=== PATIENT | male | born 1970 ===

== ENCOUNTER 2017-02-09 08:09 | Inpatient (IN) | payer BC ==
[2017-02-09 08:13] VITALS: BMI 24.3
[2017-02-09] MEDS ORDERED: Sodium Chloride 0.9% 1,000 ML IV STA (08:39)
[2017-02-09] MEDS ORDERED: Iohexol 300 100 ML IJ ONE (08:54)
[2017-02-09] MEDS ORDERED: Sodium Chloride 0.9% 50 ML IV ONE (08:54)
--- NOTE | 2017-02-09 08:59 | ED PDOC ---
HPI: Abdomen Time Seen by Provider: 02/09/17 08:23 Chief Complaint (Nursing): Abdominal Pain Chief Complaint (Provider): abdominal pain History Per: Patient History/Exam Limitations: no limitations Onset/Duration Of Symptoms: Days (x 1 week) Outside of [place] travel?: No Additional Complaint(s): Tucker Hansen is a 47 year old male, with a previous medical history of appendectomy, who presents to the ED with complaints of abdominal pain to the left lower quadrant and right side of his back ongoing for 1 week. Patient denies any fever, chillsm nausea, vomiting, diarrhea, urinary symptoms or bloody stools. He reports taking advil to alleviate the pain with the last dose being at 06:30 this morning. PMD: none provided Past Medical History Reviewed: Historical Data, Nursing Documentation, Vital Signs Vital Signs: Last Vital Signs Temp 97 F L 02/09/17 08:12 Pulse 92 H 02/09/17 08:12 Resp BP 133/82 02/09/17 08:12 Pulse Ox 99 02/09/17 09:04 - Medical History PMH: No Chronic Diseases - Surgical History Surgical History: Appendectomy (1994) - Family History Family History: States: Unknown Family Hx - Social History Current smoker - smoking cessation education provided: Yes Alcohol: Social - Immunization History Hx Tetanus Toxoid Vaccination: No Hx Influenza Vaccination: No Hx Pneumococcal Vaccination: No - Home Medications Home Medications: Ambulatory Orders Medication Instructions Recorded Aluminum Hydroxide/Magnesium 30 ml PO QID #360 jessi 10/25/13 [Maalox Plus 360 ml] Famotidine [Pepcid] 1 tab PO BID #20 tab 10/25/13 - Allergies Allergies/Adverse Reactions: Allergies Allergy/AdvReac Type Severity Reaction Status Date / Time No Known Allergies Allergy Unverified 02/08/13 19:34 Review of Systems ROS Statement: Except As Marked, All Systems Reviewed And Found Negative Constitutional: Negative for: Fever, Chills Gastrointestinal: Positive for: Abdominal Pain (LLQ). Negative for: Nausea, Vomiting, Diarrhea Genitourinary Male: Negative for: Dysuria, Frequency, Incontinence, Hematuria Musculoskeletal: Positive for: Back Pain (right sided ) Physical Exam - Reviewed Nursing Documentation Reviewed: Yes Vital Signs Reviewed: Yes - Physical Exam Appears: Positive for: Well, Non-toxic, No Acute Distress Head Exam: Positive for: ATRAUMATIC, NORMAL INSPECTION, NORMOCEPHALIC Skin: Positive for: Normal Color, Warm, Dry Eye Exam: Positive for: EOMI, Normal appearance, PERRL ENT: Positive for: Normal ENT Inspection Neck: Positive for: Normal, Painless ROM Cardiovascular/Chest: Positive for: Regular Rate, Rhythm Respiratory: Positive for: CNT, Normal Breath Sounds Gastrointestinal/Abdominal: Positive for: Bowel Sounds, Soft, Tenderness (RUQ and RLQ), Rebound (to the LLQ) Back: Positive for: Normal Inspection. Negative for: L CVA Tenderness, R CVA Tenderness Extremity: Positive for: Normal ROM Neurologic/Psych: Positive for: Alert, Oriented - Laboratory Results Result Diagrams: 02/09/17 09:50 02/09/17 09:50 - ECG O2 Sat by Pulse Oximetry: 99 (RA) Pulse Ox Interpretation: Normal Medical Decision Making Medical Decision Making: Initial Impression: abdominal pain with differential of diverticulitis Initial Plan: * abd& pelvis w/ IV contrast * lipase * urine dipstick * labs * morphine 2 mg IV * IV NS 1,000 ml at 1,000 ml/hr * pepcid 20 mg IV * reevaluation Scribe Attestation: Documented by Polina Galindo, acting as a scribe for Adelia Arreola MD. Provider Scribe Attestation: All medical record entries made by the Scribe were at my direction and personally dictated by me. I have reviewed the chart and agree that the record accurately reflects my personal performance of the history, physical exam, medical decision making, and the department course for this patient. I have also personally directed, reviewed, and agree with the discharge instructions and disposition. Disposition - Clinical Impression Clinical Impression: Diverticulitis, Colonic diverticular abscess - Patient ED Disposition Is Patient to be Admitted: Yes Doctor Will See Patient In The: Hospital - Disposition Referrals: FAMILY PROVIDER,NO [Primary Care Provider] - Disposition Time: 11:30 Condition: STABLE Forms: [facility] (Maltese) - Pt Status Changed To: Hospital Disposition Of: Inpatient - Admit Certification Admit to Inpatient:: After my assessment, the patient will require hospitalization for at least two midnights. This is because of the severity of symptoms shown, intensity of services needed, and/or the medical risk in this patient being treated as an outpatient. - POA Present On Arrival: None
[2017-02-09 10:05] LABS: BASO % 0.4 % (0.0-2.0); EOS # 0.4 K/uL (0.0-0.7); EOS % 3.4 % (0.0-4.0); HEMATOCRIT 42.6 % (35.0-51.0); LYMPH # 1.7 K/uL (1.0-4.3); LYMPH % 15.1 % (20.0-40.0); MEAN CELL VOLUME 96.4 fl (80.0-94.0); MEAN CORPUSCULAR HEMOGLOBIN 32.6 pg (27.0-31.0); MEAN CORPUSCULAR HGB CONC 33.9 g/dL (33.0-37.0); MEAN PLATELET VOLUME 7.8 fl (7.2-11.7); MONO % 8.4 % (0.0-10.0); NEUT # 8.4 K/uL (1.8-7.0); NEUT % 72.7 % (50.0-75.0); NRBC % 0.1 % (0.0-0.0); RED CELL DISTRIBUTION WIDTH 13.8 % (11.5-14.5); WHITE BLOOD COUNT 11.6 K/uL (4.8-10.8)
[2017-02-09 10:18] LABS: ALB/GLOB RATIO 1.3 (1.0-2.1); ALKALINE PHOSPHATASE 62 U/L (38-126); ALT/SGPT 40 U/L (21-72); AST/SGOT 29 U/L (17-59); BILIRUBIN,TOTAL 0.6 mg/dl (0.2-1.3); BLOOD UREA NITROGEN 12 mg/dl (9-20); CALCIUM 9.3 mg/dL (8.4-10.2); CARBON DIOXIDE 28 mmol/L (22-30); CHLORIDE 102 mmol/L (98-107); GFR AFRICAN-AMERICAN > 60; GLUCOSE,RANDOM 93 mg/dL (75-110); LIPASE 89 U/L (23-300); POTASSIUM 3.8 MMOL/L (3.6-5.0); SODIUM 138 mmol/l (132-148); TOTAL PROTEIN 6.8 G/DL (6.3-8.2)
--- NOTE | 2017-02-09 11:37 | CT ---
PROCEDURE: CT Abdomen and Pelvis with contrast HISTORY: LLQ pain x 1 week with tenderness COMPARISON: None. TECHNIQUE: Contrast dose: Omnipaque 300, 95 cc. Radiation dose: Total exam DLP = 692 mGy-cm. This CT exam was performed using one or more of the following dose reduction techniques: Automated exposure control, adjustment of the mA and/or kV according to patient size, and/or use of iterative reconstruction technique. FINDINGS: LOWER THORAX: Limited bilateral basilar dependent atelectasis. A small hiatal hernia is also noted. LIVER: Punctate granulomas seen at the inferior margins of the right lobe liver. Fatty infiltration liver difficult to exclude on diffuse basis due to arterial phase imaging. No gross ductal dilatation. GALLBLADDER AND BILE DUCTS: Gallbladder appears partly contracted. PANCREAS: Unremarkable. No gross lesion or ductal dilatation. SPLEEN: Unremarkable. ADRENALS: Unremarkable. No mass. KIDNEYS AND URETERS: Unremarkable. No hydronephrosis. No solid mass. VASCULATURE: Unremarkable. No aortic aneurysm. BOWEL: There is marked thickening of the sigmoid colon at the mid to distal segment with extensive diverticular changes. Local pericolic reaction appears relatively prominent and there is a small lucency seen in the lateral wall of the mid sigmoid colon with limited gas and mildly prominent peripheral enhancement suspicious for possible intramural abscess with potential extramural rupture. This measures only once 0.5 cm greatest dimension and follow-up CT is advised to monitor this following therapy. Oral contrast was not administered to this patient limiting evaluation of the stomach and bowel. Surgical clips are appreciated at the cecal base with prior appendectomy in question. Clinically correlate further. APPENDIX: Not identified. Consider possible prior appendectomy. See discussion immediately above. PERITONEUM: Trace fluid is seen in the pelvis. LYMPH NODES: Unremarkable. No enlarged lymph nodes. BLADDER: Unremarkable. REPRODUCTIVE: Enlarged prostate gland. BONES: Mild multilevel lumbar spondylosis. OTHER FINDINGS: None. IMPRESSION: Findings compatible with segmental colitis affecting the mid to distal sigmoid colon likely a function of diverticulitis. Differs diagnosis consist of other infectious or inflammatory causes though ischemia neoplasm not completely excluded. Further clinical correlation advised. A small microabscesses as questioned at the lateral margin of the mid sigmoid colon a either intramural or possibly extramural. Follow-up CT is advised during and following therapy to monitor this area in particular. No large abscess is evident and there is no prominent free intrarenal gas. Other lesser findings are as discussed above. Yes
[2017-02-09] MEDS ORDERED: metroNIDAZOLE 500mg/100ml NS 100 ML IVPB STA (12:17)
[2017-02-09] MEDS ORDERED: Ciprofloxacin 400mg/200ml D5W 400 MG/200 ML BAG IVPB STA (12:17)
[2017-02-09] MEDS ORDERED: Ciprofloxacin 400mg/200ml D5W 400 MG/200 ML BAG IVPB ONE (12:22)
[2017-02-09] MEDS ORDERED: metroNIDAZOLE 500mg/100ml NS 100 ML IVPB ONE (13:22)
--- NOTE | 2017-02-09 13:59 | CP.PCM.CON ---
History of Present Illness - History of Present Illness History of Present Illness: 47 year old male, with a previous medical history of appendectomy, who presents to the ED with complaints of abdominal pain to the left lower quadrant and right side of his back ongoing for 1 week. Patient denies any fever, chillsm nausea, vomiting, diarrhea, urinary symptoms or bloody stools. He reports taking advil to alleviate the pain with the last dose being at 06:30 this morning. C/O TENDERNESS LEFT > RIGHT IV RX IN [facility] REVIEWED Review of Systems - Constitutional Constitutional: Anorexia - EENT Eyes: absent: As Per HPI, Blind Spots, Blurred Vision, Change in Vision, Decreased Night Vision, Diplopia, Discharge, Dry Eye, Exophthalmos, Floaters, Irritation, Itchy Eyes, Loss of Peripheral Vision, Pain, Photophobia, Requires Corrective Lenses, Sees Flashes, Spots in Vision, Tunnel Vision, Other Visual Disturbances, Loss of Vision, Other Ears: absent: As Per HPI, Decreased Hearing, Ear Discharge, Ear Pain, Tinnitus, Abnormal Hearing, Disequilibrium, Dizziness, Other Nose/Mouth/Throat: absent: As Per HPI, Epistaxis, Nasal Congestion, Nasal Discharge, Nasal Obstruction, Nasal Trauma, Nose Pain, Post Nasal Drip, Sinus Pain, Sinus Pressure, Bleeding Gums, Change in Voice, Dental Pain, Dry Mouth, Dysphagia, Halitosis, Hoarsness, Lip Swelling, Mouth Lesions, Mouth Pain, Odynophagia, Sore Throat, Throat Swelling, Tongue Swelling, Facial Pain, Neck Pain, Neck Mass, Other - Cardiovascular Cardiovascular: absent: As Per HPI, Acrocyanosis, Chest Pain, Chest Pain at Rest , Chest Pain with Activity, Claudication, Diaphoresis, Dyspnea, Dyspnea on Exertion, Edema, Irregular Heart Rhythm, Pain Radiating to Arm/Neck/Jaw, Leg Edema, Leg Ulcers, Lightheadedness, Orthopnea, Palpitations, Paroxysmal Nocturnal Dyspnea, Pedal Edema, Radiating Pain, Rapid Heart Rate, Slow Heart Rate, Syncope, Other - Respiratory Respiratory: absent: As Per HPI, Cough, Dyspnea, Hemoptysis, Dyspnea on Exertion , Wheezing, Snoring, Stridor, Pain on Inspiration, Chest Congestion, Excessive Mucous Production, Change in Mucous Color, Pain with Coughing, Other - Gastrointestinal Gastrointestinal: As Per HPI - Genitourinary Genitourinary: absent: As Per HPI, Change in Urinary Stream, Difficulty Urinating, Dysuria, Flank Pain, Hematuria, Pyuria, Nocturia, Urinary Incontinence, Urinary Frequency, Urinary Hesitance, Urinary Urgency, Voiding Freq/Small Amts, Freq UTI, Hx Renal/Bladder Calculi, Hx /Renal Surgery, Bladder Distension, Other - Musculoskeletal Musculoskeletal: absent: As Per HPI, Abnormal Gait, Arthralgias, Atrophy, Back Pain, Deformity, Joint Swelling, Limited Range of Motion, Loss of Height, Muscle Cramps, Muscle Weakness, Myalgias, Neck Pain, Numbness, Radiating Pain into Limb, Stiffness, Tingling, Other - Integumentary Integumentary: absent: As Per HPI, Acne, Alopecia, Bleeding Lesions, Change in Hair, Change in Nails, Change in Pigmentation, Changing Lesions, Dry Skin, Erythema, Furuncle, Hirsutism, Lesions, New Lesions, Non-Healing Lesions, Photosensitivity, Pruritus, Rash, Skin Pain, Skin Ulcer, Sores, Striae, Swelling , Unusual Bruising, Wounds, Jaundice, Other - Neurological Neurological: absent: As Per HPI, Abnormal Gait, Abnormal Hearing, Abnormal Movements, Abnormal Speech, Behavioral Changes, Burning Sensations, Confusion, Convulsions, Disequilibrium, Dizziness, Numbness, Focal Weakness, Frequent Falls , Headaches, Lack of Coordination, Loss of Vision, Memory Loss, Paresthesias, Radicular Pain, Restless Legs, Sensory Deficit, Syncope, Tingling, Tremor, Vertigo, Weakness, Other Visual Disturbances, Other - Psychiatric Psychiatric: absent: As Per HPI, Abnormal Sleep Pattern, Anhedonia, Anxiety, Auditory Hallucinations, Behavioral Changes, Change in Appetite, Change in Libido, Confusion, Depression, Difficulty Concentrating, Hallucinations, Homicidal Ideation, Hopelessness, Irritability, Memory Loss, Mood Swings, Panic Attacks, Paranoia, Suicidal Ideation, Visual Hallucinations, Tactile Hallucinations, Other - Endocrine Endocrine: absent: As Per HPI, Change in Body Appearance, Change in Libido, Cold Intolorance, Deepening of Voice, Excessive Sweating, Fatigue, Flushing, Heat Intolorance, Increase in Ring/Shoe/Hat Size, Palpitations, Polydipsia, Polyphagia, Polyuria, Other Past Patient History - Infectious Disease Hx of Infectious Diseases: None - Past Social History Alcohol: Social - PSYCHIATRIC Hx Substance Use: Yes - SURGICAL HISTORY Hx Appendectomy: Yes (1994) Meds Allergies/Adverse Reactions: Allergies Allergy/AdvReac Type Severity Reaction Status Date / Time No Known Allergies Allergy Unverified 02/08/13 19:34 Physical Exam - Constitutional Appears: Non-toxic - Head Exam Head Exam: NORMOCEPHALIC - Eye Exam Eye Exam: PERRL. absent: Scleral icterus - ENT Exam ENT Exam: Mucous Membranes Dry - Neck Exam Neck exam: Negative for: Lymphadenopathy - Respiratory Exam Respiratory Exam: Decreased Breath Sounds, Clear to Auscultation Bilateral - Cardiovascular Exam Cardiovascular Exam: REGULAR RHYTHM - GI/Abdominal Exam GI & Abdominal Exam: Diminished Bowel Sounds, Distended, Soft, Tenderness - Rectal Exam Rectal Exam: Deferred - Exam Exam: NORMAL INSPECTION - Extremities Exam Extremities exam: Negative for: pedal edema - Back Exam Back exam: absent: CVA tenderness (L), CVA tenderness (R) Results - Vital Signs Recent Vital Signs: Last Vital Signs Temp 98.0 F 02/09/17 12:31 Pulse 61 02/09/17 12:31 Resp 19 02/09/17 12:31 BP 118/72 02/09/17 12:31 Pulse Ox 98 02/09/17 12:31 - Labs Result Diagrams: 02/09/17 09:50 02/09/17 09:50 Assessment & Plan (1) Colonic diverticular abscess Status: Acute (2) Diverticulitis Status: Acute (3) Alcohol abuse Status: Acute - Assessment and Plan (Free Text) Assessment: CONT IV ANTIBIOTIC RX
[2017-02-09] MEDS: Sodium Chloride 0.9% 1,000 ML IV SCH (14:41)
[2017-02-09] MEDS ORDERED: Pneumococcal 23-Valent Vaccine IM ONE (15:25)
--- NOTE | 2017-02-09 16:08 | CP.PCM.CON ---
<Steff May - Last Filed: 02/09/17 16:28> History of Present Illness - History of Present Illness History of Present Illness: Surgery consult for Dr. Mahoney 47 year old male w PSH of appendectomy, who presents with LLQ abdominal pain started 5 days ago. Pain is gradually worsen. Pt also reports R back pain. Reports taking Milk of magnesia and aleve to relieve pain. Has regular BM daily. Patient denies any fever, chillsm nausea, vomiting, diarrhea, urinary symptoms, weight loss, recent travel, sick contact or bloody stools. This is the first time having diverticulitis Ct abd show sigmoid diverticulitis. No free air. WBC was 11. Surgery was consulted to evaluate for diverticulitis. PSH: appendectomy Fhx: no h/o colon CA Review of Systems - Review of Systems Review of Systems: See HPI Past Patient History - Infectious Disease Hx of Infectious Diseases: None - Past Social History Smoking Status: Heavy Smoker > 10 Cigarettes Daily - CARDIAC Hx Cardiac Disorders: No - PULMONARY Hx Respiratory Disorders: No - NEUROLOGICAL Hx Neurological Disorder: No - HEENT Hx HEENT Problems: No - RENAL Hx Chronic Kidney Disease: No - ENDOCRINE/METABOLIC Hx Endocrine Disorders: No - HEMATOLOGICAL/ONCOLOGICAL Hx Blood Disorders: No - INTEGUMENTARY Hx Dermatological Problems: No - MUSCULOSKELETAL/RHEUMATOLOGICAL Hx Musculoskeletal Disorders: No Hx Falls: No - GASTROINTESTINAL Hx Gastrointestinal Disorders: No - GENITOURINARY/GYNECOLOGICAL Hx Genitourinary Disorders: No - PSYCHIATRIC Hx Substance Use: Yes (Marijuana) - SURGICAL HISTORY Hx Appendectomy: Yes (1994) - ANESTHESIA Hx Anesthesia: Yes Hx Anesthesia Reactions: No Meds Allergies/Adverse Reactions: Allergies Allergy/AdvReac Type Severity Reaction Status Date / Time No Known Allergies Allergy Unverified 02/08/13 19:34 - Medications Medications: Current Medications Acetaminophen (Tylenol 325mg Tab) 650 mg PO Q4 PRN PRN Reason: Fever >100.4 F Hydromorphone HCl (Dilaudid) 0.5 mg IVP Q4 PRN PRN Reason: Pain, severe (8-10) Ciprofloxacin (Cipro 400mg/200ml Dsw) 400 mg in 200 mls @ 200 mls/hr IVPB Q12 EMILY Metronidazole (Flagyl 500mg/100ml Ns) 100 mls @ 100 mls/hr IVPB Q12 EMILY Sodium Chloride (Sodium Chloride 0.9%) 1,000 mls @ 100 mls/hr IV .Q10H EMILY Stop: 02/10/17 14:09 Last Admin: 02/09/17 14:41 Dose: 100 mls/hr Ketorolac Tromethamine (Toradol) 15 mg IM Q6 PRN PRN Reason: Pain, moderate (4-7) Ondansetron HCl (Zofran Inj) 4 mg IVP Q4 PRN PRN Reason: Nausea/Vomiting Physical Exam - Constitutional Appears: No Acute Distress - Head Exam Head Exam: ATRAUMATIC, NORMAL INSPECTION, NORMOCEPHALIC - Eye Exam Eye Exam: EOMI, Normal appearance, PERRL Pupil Exam: NORMAL ACCOMODATION, PERRL - ENT Exam ENT Exam: Mucous Membranes Moist, Normal Exam - Neck Exam Neck exam: Positive for: Normal Inspection - Respiratory Exam Respiratory Exam: Clear to Auscultation Bilateral, NORMAL BREATHING PATTERN - Cardiovascular Exam Cardiovascular Exam: REGULAR RHYTHM - GI/Abdominal Exam GI & Abdominal Exam: Normal Bowel Sounds, Soft, Tenderness Additional comments: LLQ TTP. - Exam Exam: NORMAL INSPECTION - Extremities Exam Extremities exam: Positive for: full ROM, normal inspection - Back Exam Back exam: NORMAL INSPECTION. absent: CVA tenderness (L), CVA tenderness (R) - Neurological Exam Neurological exam: Alert, CN II-XII Intact, Normal Gait, Oriented x3, Reflexes Normal - Psychiatric Exam Psychiatric exam: Normal Affect, Normal Mood - Skin Skin Exam: Dry, Intact, Normal Color, Warm Results - Vital Signs Recent Vital Signs: Last Vital Signs Temp 98.3 F 02/09/17 15:00 Pulse 61 02/09/17 15:00 Resp 18 02/09/17 15:00 BP 133/87 02/09/17 15:00 Pulse Ox 100 02/09/17 15:00 - Labs Result Diagrams: 02/09/17 09:50 02/09/17 09:50 Assessment & Plan - Assessment and Plan (Free Text) Assessment: 47 M w sigmoid diverticulitis WBC 11.4 Afebrile -NPO -IVF -ABX -Zofran -Pain control -Recommend GI consult for colonoscopy in 4-6 weeks after resolution of diverticulitis -We will follow RADHA Mahoney <Micheal Joshua - Last Filed: 02/10/17 17:54> History of Present Illness - History of Present Illness History of Present Illness: Patient was seen and examined at the bedside. Agree with resident's note above Meds - Medications Medications: Current Medications Acetaminophen (Tylenol 325mg Tab) 650 mg PO Q4 PRN PRN Reason: Fever >100.4 F Hydromorphone HCl (Dilaudid) 0.5 mg IVP Q4 PRN PRN Reason: Pain, severe (8-10) Last Admin: 02/10/17 16:31 Dose: 0.5 mg Ciprofloxacin (Cipro 400mg/200ml Dsw) 400 mg in 200 mls @ 200 mls/hr IVPB Q12 EMLIY Last Admin: 02/10/17 08:48 Dose: 200 mls/hr Metronidazole (Flagyl 500mg/100ml Ns) 100 mls @ 100 mls/hr IVPB Q12 EMILY Last Admin: 02/10/17 08:47 Dose: 100 mls/hr Ketorolac Tromethamine (Toradol) 15 mg IVP Q6 PRN PRN Reason: Pain, moderate (4-7) Last Admin: 02/10/17 08:45 Dose: 15 mg Ondansetron HCl (Zofran Inj) 4 mg IVP Q4 PRN PRN Reason: Nausea/Vomiting Results - Vital Signs Recent Vital Signs: Last Vital Signs Temp 98.4 F 02/10/17 16:20 Pulse 60 02/10/17 16:20 Resp 18 02/10/17 16:20 BP 136/86 02/10/17 16:20 Pulse Ox 98 02/10/17 16:20 - Labs Result Diagrams: 02/10/17 05:00 02/09/17 09:50 Labs: Laboratory Results - last 24 hr 02/10/17 05:00 WBC 9.5 RBC 4.24 L Hgb 14.0 Hct 42.0 MCV 98.9 H D MCH 32.9 H MCHC 33.3 RDW 13.7 Plt Count 252
[2017-02-09] MEDS: HYDROmorphone 0.5 mg/0.5 ml ISec IVP PRN ×2 (16:57→21:11)
[2017-02-09] MEDS: Ciprofloxacin 400mg/200ml D5W 400 MG/200 ML BAG IVPB SCH (21:10)
[2017-02-09] MEDS: metroNIDAZOLE 500mg/100ml NS 100 ML IVPB SCH (21:10)
[2017-02-10] MEDS: HYDROmorphone 0.5 mg/0.5 ml ISec IVP PRN ×3 (02:54→21:50)
[2017-02-10 06:22] LABS: MEAN CELL VOLUME 98.9 fl (80.0-94.0); MEAN CORPUSCULAR HEMOGLOBIN 32.9 pg (27.0-31.0); MEAN CORPUSCULAR HGB CONC 33.3 g/dL (33.0-37.0); RED CELL DISTRIBUTION WIDTH 13.7 % (11.5-14.5); WHITE BLOOD COUNT 9.5 K/uL (4.8-10.8)
[2017-02-10] MEDS: metroNIDAZOLE 500mg/100ml NS 100 ML IVPB SCH ×2 (08:47→20:27)
[2017-02-10] MEDS: Ciprofloxacin 400mg/200ml D5W 400 MG/200 ML BAG IVPB SCH ×2 (08:48→20:27)
--- NOTE | 2017-02-10 08:55 | CP.PCM.HP ---
History of Present Illness - History of Present Illness History of Present Illness: 47 y/o male with an unremarkable PMHx came to the [facility] with a chief complaint of worsening abdominal pain. Pain started about a week ago and gradually progressed. Denies inciting event. Pt is primarily located in LLQ, is 8/10, nonradiating, and sharp in character. It was associated with two days of constipation which later turned to watery bowel movements as he started taking laxatives and switched to a liquid diet. Mildly alleviated with OTC NSAIDs and rest but then without alleviatign factors. Exacerbated by movement or anything that increased intraabdomial pressure. No other associated symptoms. Denies fever/chills, headaches, changes in vision, CP/SOB/Palpitations, V/D/, melena, hematochezia, , hematuria, urinary symptoms. ROS: remaining 12 systems reviewed found to be negative PMD: none PMHx: unremarkable Meds: none ALL: NKDA PsurgHx: appendectomy Social: current smoker, social ETOH, denies illcit drug use FamilyHx: denies hx of colon cancer, otherwise unremarkable Present on Admission - Present on Admission Any Indicators Present on Admission: No Past Patient History - Infectious Disease Hx of Infectious Diseases: None - Past Social History Smoking Status: Heavy Smoker > 10 Cigarettes Daily - CARDIAC Hx Cardiac Disorders: No - PULMONARY Hx Respiratory Disorders: No - NEUROLOGICAL Hx Neurological Disorder: No - HEENT Hx HEENT Problems: No - RENAL Hx Chronic Kidney Disease: No - ENDOCRINE/METABOLIC Hx Endocrine Disorders: No - HEMATOLOGICAL/ONCOLOGICAL Hx Blood Disorders: No - INTEGUMENTARY Hx Dermatological Problems: No - MUSCULOSKELETAL/RHEUMATOLOGICAL Hx Musculoskeletal Disorders: No Hx Falls: No - GASTROINTESTINAL Hx Gastrointestinal Disorders: No - GENITOURINARY/GYNECOLOGICAL Hx Genitourinary Disorders: No - PSYCHIATRIC Hx Substance Use: Yes (Marijuana) - SURGICAL HISTORY Hx Appendectomy: Yes (1994) - ANESTHESIA Hx Anesthesia: Yes Hx Anesthesia Reactions: No Meds Allergies/Adverse Reactions: Allergies Allergy/AdvReac Type Severity Reaction Status Date / Time No Known Allergies Allergy Unverified 02/08/13 19:34 Physical Exam - Constitutional Appears: Non-toxic, No Acute Distress - Head Exam Head Exam: ATRAUMATIC, NORMOCEPHALIC - Eye Exam Eye Exam: EOMI. absent: Conjunctival injection, Scleral icterus Pupil Exam: PERRL - ENT Exam ENT Exam: Mucous Membranes Moist - Neck Exam Neck exam: Positive for: Full Rom - Respiratory Exam Respiratory Exam: Clear to Auscultation Bilateral, NORMAL BREATHING PATTERN. absent: Accessory Muscle Use, Rales, Rhonchi, Wheezes - Cardiovascular Exam Cardiovascular Exam: REGULAR RHYTHM, RRR, +S1, +S2. absent: Gallop, JVD, Rubs, Systolic Murmur - GI/Abdominal Exam GI & Abdominal Exam: Distended, Normal Bowel Sounds, Tenderness (moderate tenderness throughout ). absent: Diminished Bowel Sounds, Firm, Guarding, Mass , Organomegaly, Rebound, Rigid, Soft - Extremities Exam Extremities exam: Positive for: normal inspection. Negative for: calf tenderness, pedal edema - Back Exam Back exam: NORMAL INSPECTION. absent: CVA tenderness (L), CVA tenderness (R) - Neurological Exam Neurological exam: Alert, CN II-XII Intact, Oriented x3 - Psychiatric Exam Psychiatric exam: Normal Affect, Normal Mood Results - Vital Signs Recent Vital Signs: Last Vital Signs Temp 97.5 F L 02/10/17 07:31 Pulse 83 02/10/17 07:31 Resp 20 02/10/17 07:31 BP 135/86 02/10/17 07:31 Pulse Ox 99 02/10/17 07:31 - Labs Result Diagrams: 02/10/17 05:00 02/09/17 09:50 Labs: Laboratory Results - last 24 hr 02/10/17 05:00 WBC 9.5 RBC 4.24 L Hgb 14.0 Hct 42.0 MCV 98.9 H D MCH 32.9 H MCHC 33.3 RDW 13.7 Plt Count 252 Assessment & Plan (1) Diverticulitis of sigmoid colon Assessment and Plan: currently on IV ABx (Cipro Flagyl) General surgery on board, currently following ID following WBC normal today, afebrile will advance diet and continue to observe pt Status: Acute
--- NOTE | 2017-02-10 12:09 | CP.PCM.PN ---
<Steff May - Last Filed: 02/10/17 12:19> Subjective - Date & Time of Evaluation Date of Evaluation: 02/10/17 Time of Evaluation: 12:07 - Subjective Subjective: Surgery for Dr. Mahoney Pt s&e. Pain controlled. Denies F/C/N/V/D/CP/SOB. + void, + amb. + flatus. Objective - Vital Signs/Intake and Output Vital Signs (last 24 hours): Temp Pulse Resp BP Pulse Ox 97.5 F L 83 20 135/86 99 02/10/17 07:31 02/10/17 07:31 02/10/17 07:31 02/10/17 07:31 02/10/17 07:31 - Medications Medications: Current Medications Acetaminophen (Tylenol 325mg Tab) 650 mg PO Q4 PRN PRN Reason: Fever >100.4 F Hydromorphone HCl (Dilaudid) 0.5 mg IVP Q4 PRN PRN Reason: Pain, severe (8-10) Last Admin: 02/10/17 02:54 Dose: 0.5 mg Ciprofloxacin (Cipro 400mg/200ml Dsw) 400 mg in 200 mls @ 200 mls/hr IVPB Q12 [facility] Last Admin: 02/10/17 08:48 Dose: 200 mls/hr Metronidazole (Flagyl 500mg/100ml Ns) 100 mls @ 100 mls/hr IVPB Q12 [facility] Last Admin: 02/10/17 08:47 Dose: 100 mls/hr Sodium Chloride (Sodium Chloride 0.9%) 1,000 mls @ 100 mls/hr IV .Q10H [facility] Stop: 02/10/17 14:09 Last Admin: 02/09/17 14:41 Dose: 100 mls/hr Ketorolac Tromethamine (Toradol) 15 mg IVP Q6 PRN PRN Reason: Pain, moderate (4-7) Last Admin: 02/10/17 08:45 Dose: 15 mg Ondansetron HCl (Zofran Inj) 4 mg IVP Q4 PRN PRN Reason: Nausea/Vomiting - Labs Labs: 02/10/17 05:00 - Constitutional Appears: No Acute Distress - Head Exam Head Exam: ATRAUMATIC, NORMAL INSPECTION, NORMOCEPHALIC - Eye Exam Eye Exam: EOMI, Normal appearance, PERRL Pupil Exam: NORMAL ACCOMODATION, PERRL - ENT Exam ENT Exam: Mucous Membranes Moist, Normal Exam - Neck Exam Neck Exam: Full ROM, Normal Inspection. absent: Lymphadenopathy - Respiratory Exam Respiratory Exam: Clear to Ausculation Bilateral, NORMAL BREATHING PATTERN - Cardiovascular Exam Cardiovascular Exam: REGULAR RHYTHM, +S1, +S2. absent: Murmur - GI/Abdominal Exam GI & Abdominal Exam: Soft, Tenderness, Normal Bowel Sounds. absent: Distended, Firm, Guarding, Rigid, Mass, Pulsatile Mass, Rebound Additional comments: Mild LLQ TTP. - Exam Exam: NORMAL INSPECTION - Extremities Exam Extremities Exam: Full ROM, Normal Capillary Refill, Normal Inspection. absent : Joint Swelling, Pedal Edema - Back Exam Back Exam: NORMAL INSPECTION - Neurological Exam Neurological Exam: Alert, Awake, CN II-XII Intact, Normal Gait, Oriented x3 - Psychiatric Exam Psychiatric exam: Normal Affect, Normal Mood - Skin Skin Exam: Dry, Intact, Normal Color, Warm. absent: Erythema Assessment and Plan - Assessment and Plan (Free Text) Assessment: 47 M w sigmoid diverticulitis Leukocytosis resolved. Afebrile -CLD. ADAT -IVF -ABX -Zofran -Pain control -Recommend GI consult for colonoscopy in 4-6 weeks after resolution of diverticulitis -We will follow Will RADHA Mahoney <Micheal Joshua - Last Filed: 02/10/17 17:54> Subjective - Date & Time of Evaluation Time of Evaluation: 16:20 - Subjective Subjective: Patient was seen and examined at the bedside. Agree with resident's note above Objective - Vital Signs/Intake and Output Vital Signs (last 24 hours): Temp Pulse Resp BP Pulse Ox 98.4 F 60 18 136/86 98 02/10/17 16:20 02/10/17 16:20 02/10/17 16:20 02/10/17 16:20 02/10/17 16:20 - Medications Medications: Current Medications Acetaminophen (Tylenol 325mg Tab) 650 mg PO Q4 PRN PRN Reason: Fever >100.4 F Hydromorphone HCl (Dilaudid) 0.5 mg IVP Q4 PRN PRN Reason: Pain, severe (8-10) Last Admin: 02/10/17 16:31 Dose: 0.5 mg Ciprofloxacin (Cipro 400mg/200ml Dsw) 400 mg in 200 mls @ 200 mls/hr IVPB Q12 [facility] Last Admin: 02/10/17 08:48 Dose: 200 mls/hr Metronidazole (Flagyl 500mg/100ml Ns) 100 mls @ 100 mls/hr IVPB Q12 [facility] Last Admin: 02/10/17 08:47 Dose: 100 mls/hr Ketorolac Tromethamine (Toradol) 15 mg IVP Q6 PRN PRN Reason: Pain, moderate (4-7) Last Admin: 02/10/17 08:45 Dose: 15 mg Ondansetron HCl (Zofran Inj) 4 mg IVP Q4 PRN PRN Reason: Nausea/Vomiting - Labs Labs: 02/10/17 05:00
[2017-02-10] MEDS: Sodium Chloride 0.9% 1,000 ML IV SCH (16:28)
[2017-02-11 06:59] LABS: HEMATOCRIT 40.7 % (35.0-51.0); MEAN CELL VOLUME 98.2 fl (80.0-94.0); MEAN CORPUSCULAR HEMOGLOBIN 32.2 pg (27.0-31.0); MEAN CORPUSCULAR HGB CONC 32.8 g/dL (33.0-37.0); RED CELL DISTRIBUTION WIDTH 13.5 % (11.5-14.5); WHITE BLOOD COUNT 8.1 K/uL (4.8-10.8)
[2017-02-11] MEDS ORDERED: Oxycodone/Acetaminophen 5/325 mg Tab PO PRN (07:45)
--- NOTE | 2017-02-11 07:49 | CP.PCM.PN ---
<Steff May - Last Filed: 02/11/17 07:50> Subjective - Date & Time of Evaluation Date of Evaluation: 02/11/17 Time of Evaluation: 07:47 - Subjective Subjective: Surgery for Dr. Mahoney Pt s&e. denies F/C/N/V/D/CO/SON. + amb. Pain controlled. + void. Objective - Vital Signs/Intake and Output Vital Signs (last 24 hours): Temp Pulse Resp BP Pulse Ox 98.1 F 71 18 145/90 95 02/11/17 07:32 02/11/17 07:32 02/11/17 07:32 02/11/17 07:32 02/11/17 07:32 - Medications Medications: Current Medications Acetaminophen (Tylenol 325mg Tab) 650 mg PO Q4 PRN PRN Reason: Fever >100.4 F Hydromorphone HCl (Dilaudid) 0.5 mg IVP Q4 PRN PRN Reason: Pain, severe (8-10) Last Admin: 02/10/17 21:50 Dose: 0.5 mg Ciprofloxacin (Cipro 400mg/200ml Dsw) 400 mg in 200 mls @ 200 mls/hr IVPB Q12 [facility] Last Admin: 02/10/17 20:27 Dose: 200 mls/hr Metronidazole (Flagyl 500mg/100ml Ns) 100 mls @ 100 mls/hr IVPB Q12 [facility] Last Admin: 02/10/17 20:27 Dose: 100 mls/hr Ketorolac Tromethamine (Toradol) 15 mg IVP Q6 PRN PRN Reason: Pain, moderate (4-7) Last Admin: 02/10/17 08:45 Dose: 15 mg Ondansetron HCl (Zofran Inj) 4 mg IVP Q4 PRN PRN Reason: Nausea/Vomiting Oxycodone/Acetaminophen (Percocet 5/325 Mg Tab) 1 tab PO Q4 PRN PRN Reason: Pain, Mild (1-3) Stop: 02/14/17 07:46 - Labs Labs: 02/11/17 06:15 - Constitutional Appears: No Acute Distress - Head Exam Head Exam: ATRAUMATIC, NORMAL INSPECTION, NORMOCEPHALIC - Eye Exam Eye Exam: EOMI, Normal appearance, PERRL Pupil Exam: NORMAL ACCOMODATION, PERRL - ENT Exam ENT Exam: Mucous Membranes Moist, Normal Exam - Neck Exam Neck Exam: Full ROM, Normal Inspection. absent: Lymphadenopathy - Respiratory Exam Respiratory Exam: Clear to Ausculation Bilateral, NORMAL BREATHING PATTERN - Cardiovascular Exam Cardiovascular Exam: REGULAR RHYTHM - GI/Abdominal Exam GI & Abdominal Exam: Soft, Tenderness, Normal Bowel Sounds. absent: Distended, Firm, Guarding, Rebound Additional comments: LLQ TTP - Extremities Exam Extremities Exam: Full ROM, Normal Inspection - Back Exam Back Exam: NORMAL INSPECTION - Neurological Exam Neurological Exam: Alert, Awake, CN II-XII Intact, Normal Gait, Oriented x3 - Psychiatric Exam Psychiatric exam: Normal Affect, Normal Mood - Skin Skin Exam: Dry, Intact, Normal Color, Warm Assessment and Plan - Assessment and Plan (Free Text) Assessment: 47 M w sigmoid diverticulitis Leukocytosis resolved. Afebrile -Monitor bowel function -FLD. ADAT -IVF -ABX -Zofran -Pain control -Recommend GI consult for colonoscopy in 4-6 weeks after resolution of diverticulitis -We will follow Will DW Dr. Mahoney <Micheal Joshua - Last Filed: 02/11/17 11:46> Subjective - Date & Time of Evaluation Time of Evaluation: 11:20 - Subjective Subjective: Patient was seen and examined at the bedside. Agree with resident's note above Objective - Vital Signs/Intake and Output Vital Signs (last 24 hours): Temp Pulse Resp BP Pulse Ox 98.1 F 71 18 145/90 95 02/11/17 07:32 02/11/17 07:32 02/11/17 07:32 02/11/17 07:32 02/11/17 07:32 - Medications Medications: Current Medications Acetaminophen (Tylenol 325mg Tab) 650 mg PO Q4 PRN PRN Reason: Fever >100.4 F Docusate Sodium (Colace) 100 mg PO DAILY [facility] Last Admin: 02/11/17 08:39 Dose: 100 mg Hydromorphone HCl (Dilaudid) 0.5 mg IVP Q4 PRN PRN Reason: Pain, severe (8-10) Last Admin: 02/10/17 21:50 Dose: 0.5 mg Ciprofloxacin (Cipro 400mg/200ml Dsw) 400 mg in 200 mls @ 200 mls/hr IVPB Q12 [facility] Last Admin: 02/11/17 08:37 Dose: 200 mls/hr Metronidazole (Flagyl 500mg/100ml Ns) 100 mls @ 100 mls/hr IVPB Q12 [facility] Last Admin: 02/11/17 08:36 Dose: 100 mls/hr Ketorolac Tromethamine (Toradol) 15 mg IVP Q6 PRN PRN Reason: Pain, moderate (4-7) Last Admin: 02/10/17 08:45 Dose: 15 mg Ondansetron HCl (Zofran Inj) 4 mg IVP Q4 PRN PRN Reason: Nausea/Vomiting Oxycodone/Acetaminophen (Percocet 5/325 Mg Tab) 1 tab PO Q4 PRN PRN Reason: Pain, Mild (1-3) Stop: 02/14/17 07:46 Last Admin: 02/11/17 10:55 Dose: 1 tab - Labs Labs: 02/11/17 06:15 Assessment and Plan - Assessment and Plan (Free Text) Plan: - Start low residue diet - pain control - continue antibiotics - Will follow
[2017-02-11] MEDS: metroNIDAZOLE 500mg/100ml NS 100 ML IVPB SCH ×2 (08:36→20:56)
[2017-02-11] MEDS: Ciprofloxacin 400mg/200ml D5W 400 MG/200 ML BAG IVPB SCH ×2 (08:37→21:59)
--- NOTE | 2017-02-11 09:35 | CP.PCM.PN ---
Subjective - Date & Time of Evaluation Date of Evaluation: 02/11/17 Time of Evaluation: 09:33 - Subjective Subjective: pt seen and examined at bedside this morning. No acute events overnight. Lying in bed comfortably, NAD. Afebrile. Pt reports moderate abdominal pain in LLQ radiating medically towards suprapubic area that is not much improved but controlled with pain meds. Pt was started on CLD yesterday and tolerated w/o issue. No other complaints. Denies fever/chills, headache, changes in vision, CP /SOB/Palpitations, N/V/D/C, urinary symptoms. Objective - Vital Signs/Intake and Output Vital Signs (last 24 hours): Temp Pulse Resp BP Pulse Ox 98.1 F 71 18 145/90 95 02/11/17 07:32 02/11/17 07:32 02/11/17 07:32 02/11/17 07:32 02/11/17 07:32 - Medications Medications: Current Medications Acetaminophen (Tylenol 325mg Tab) 650 mg PO Q4 PRN PRN Reason: Fever >100.4 F Docusate Sodium (Colace) 100 mg PO DAILY [facility] Last Admin: 02/11/17 08:39 Dose: 100 mg Hydromorphone HCl (Dilaudid) 0.5 mg IVP Q4 PRN PRN Reason: Pain, severe (8-10) Last Admin: 02/10/17 21:50 Dose: 0.5 mg Ciprofloxacin (Cipro 400mg/200ml Dsw) 400 mg in 200 mls @ 200 mls/hr IVPB Q12 [facility] Last Admin: 02/11/17 08:37 Dose: 200 mls/hr Metronidazole (Flagyl 500mg/100ml Ns) 100 mls @ 100 mls/hr IVPB Q12 [facility] Last Admin: 02/11/17 08:36 Dose: 100 mls/hr Ketorolac Tromethamine (Toradol) 15 mg IVP Q6 PRN PRN Reason: Pain, moderate (4-7) Last Admin: 02/10/17 08:45 Dose: 15 mg Ondansetron HCl (Zofran Inj) 4 mg IVP Q4 PRN PRN Reason: Nausea/Vomiting Oxycodone/Acetaminophen (Percocet 5/325 Mg Tab) 1 tab PO Q4 PRN PRN Reason: Pain, Mild (1-3) Stop: 02/14/17 07:46 - Labs Labs: 02/11/17 06:15 - Constitutional Appears: Non-toxic, No Acute Distress - Head Exam Head Exam: ATRAUMATIC, NORMOCEPHALIC - Eye Exam Eye Exam: EOMI Pupil Exam: PERRL - ENT Exam ENT Exam: Mucous Membranes Moist - Respiratory Exam Respiratory Exam: Clear to Ausculation Bilateral, NORMAL BREATHING PATTERN. absent: Rales, Rhonchi, Wheezes - Cardiovascular Exam Cardiovascular Exam: REGULAR RHYTHM, RRR, +S1, +S2. absent: JVD, Rubs - GI/Abdominal Exam GI & Abdominal Exam: Guarding (voluntary guarding), Soft, Tenderness ( tenderness in LLQ), Normal Bowel Sounds. absent: Distended, Firm, Rigid, Rebound - Neurological Exam Neurological Exam: Alert, Awake, CN II-XII Intact, Oriented x3 - Psychiatric Exam Psychiatric exam: Normal Affect, Normal Mood Assessment and Plan (1) Diverticulitis of sigmoid colon Assessment & Plan: afebrile leukocytosis resolved pain controlled CLD tolerated, advanced to FLD, will reassess and advance accordingly c/w IV Flagyl/Cipro Gen Surg on board, no surgical intervention at this time Status: Acute (2) DVT prophylaxis Assessment & Plan: low risk SCDs prn OOB/ambulation w caution Status: Acute
[2017-02-11] MEDS: Sodium Chloride 0.9% 1,000 ML IV SCH (10:06)
--- NOTE | 2017-02-11 14:22 | CP.PCM.PN ---
Subjective - Date & Time of Evaluation Date of Evaluation: 02/11/17 Time of Evaluation: 07:00 - Subjective Subjective: pain is less afebrile NAD Objective - Vital Signs/Intake and Output Vital Signs (last 24 hours): Temp Pulse Resp BP Pulse Ox 98.1 F 71 18 145/90 95 02/11/17 07:32 02/11/17 07:32 02/11/17 07:32 02/11/17 07:32 02/11/17 07:32 - Medications Medications: Current Medications Acetaminophen (Tylenol 325mg Tab) 650 mg PO Q4 PRN PRN Reason: Fever >100.4 F Docusate Sodium (Colace) 100 mg PO DAILY [facility] Last Admin: 02/11/17 08:39 Dose: 100 mg Hydromorphone HCl (Dilaudid) 0.5 mg IVP Q4 PRN PRN Reason: Pain, severe (8-10) Last Admin: 02/10/17 21:50 Dose: 0.5 mg Ciprofloxacin (Cipro 400mg/200ml Dsw) 400 mg in 200 mls @ 200 mls/hr IVPB Q12 [facility] Last Admin: 02/11/17 08:37 Dose: 200 mls/hr Metronidazole (Flagyl 500mg/100ml Ns) 100 mls @ 100 mls/hr IVPB Q12 [facility] Last Admin: 02/11/17 08:36 Dose: 100 mls/hr Ketorolac Tromethamine (Toradol) 15 mg IVP Q6 PRN PRN Reason: Pain, moderate (4-7) Last Admin: 02/10/17 08:45 Dose: 15 mg Ondansetron HCl (Zofran Inj) 4 mg IVP Q4 PRN PRN Reason: Nausea/Vomiting Oxycodone/Acetaminophen (Percocet 5/325 Mg Tab) 1 tab PO Q4 PRN PRN Reason: Pain, Mild (1-3) Stop: 02/14/17 07:46 Last Admin: 02/11/17 10:55 Dose: 1 tab - Labs Labs: 02/11/17 06:15 - Constitutional Appears: Non-toxic, Chronically Ill - Head Exam Head Exam: NORMOCEPHALIC - Eye Exam Eye Exam: PERRL. absent: Scleral icterus - ENT Exam ENT Exam: Mucous Membranes Dry, Normal External Ear Exam - Neck Exam Neck Exam: absent: Lymphadenopathy - Respiratory Exam Respiratory Exam: Decreased Breath Sounds - Cardiovascular Exam Cardiovascular Exam: REGULAR RHYTHM - GI/Abdominal Exam GI & Abdominal Exam: Distended, Soft - Rectal Exam Rectal Exam: Deferred - Exam Exam: NORMAL INSPECTION - Extremities Exam Extremities Exam: absent: Calf Tenderness, Pedal Edema - Back Exam Back Exam: absent: CVA tenderness (L), CVA tenderness (R) - Neurological Exam Neurological Exam: Alert, Awake, Oriented x3 - Skin Skin Exam: Dry, Intact Assessment and Plan (1) Colonic diverticular abscess Status: Acute (2) Diverticulitis Status: Acute (3) Alcohol abuse Status: Acute - Assessment and Plan (Free Text) Assessment: needs out pt gi folllow up cont iv then po antibiotics 10-14 days
[2017-02-11] MEDS: HYDROmorphone 0.5 mg/0.5 ml ISec IVP PRN (20:10)
[2017-02-12] MEDS: HYDROmorphone 0.5 mg/0.5 ml ISec IVP PRN (01:00)
[2017-02-12 08:46] LABS: HEMATOCRIT 41.5 % (35.0-51.0); MEAN CELL VOLUME 97.5 fl (80.0-94.0); MEAN CORPUSCULAR HEMOGLOBIN 32.3 pg (27.0-31.0); MEAN CORPUSCULAR HGB CONC 33.1 g/dL (33.0-37.0); RED CELL DISTRIBUTION WIDTH 13.6 % (11.5-14.5); WHITE BLOOD COUNT 8.1 K/uL (4.8-10.8)
[2017-02-12] MEDS: metroNIDAZOLE 500mg/100ml NS 100 ML IVPB SCH ×2 (10:16→20:38)
[2017-02-12] MEDS: Ciprofloxacin 400mg/200ml D5W 400 MG/200 ML BAG IVPB SCH ×2 (10:17→21:46)
--- NOTE | 2017-02-12 11:15 | CP.PCM.PN ---
Subjective - Date & Time of Evaluation Date of Evaluation: 02/12/17 Time of Evaluation: 07:00 - Subjective Subjective: GENERAL SURGERY PROGRESS NOTE FOR DR. PARRY Patient seen and examined with Dr. Parry at bedside. He reports mild pain in his LLQ. He is tolerating his low residue diet and denies nausea or vomiting. He reports that he is passing flatus and had BMs. He also reports mild pain in his left testicle when he coughs. Objective - Vital Signs/Intake and Output Vital Signs (last 24 hours): Temp Pulse Resp BP Pulse Ox 98 F 59 L 20 146/91 H 99 02/12/17 08:09 02/12/17 08:09 02/12/17 08:09 02/12/17 08:09 02/12/17 08:09 - Medications Medications: Current Medications Acetaminophen (Tylenol 325mg Tab) 650 mg PO Q4 PRN PRN Reason: Fever >100.4 F Docusate Sodium (Colace) 100 mg PO DAILY [facility] Last Admin: 02/12/17 10:16 Dose: 100 mg Hydromorphone HCl (Dilaudid) 0.5 mg IVP Q4 PRN PRN Reason: Pain, severe (8-10) Last Admin: 02/12/17 01:00 Dose: 0.5 mg Ciprofloxacin (Cipro 400mg/200ml Dsw) 400 mg in 200 mls @ 200 mls/hr IVPB Q12 [facility] Last Admin: 02/12/17 10:17 Dose: 200 mls/hr Metronidazole (Flagyl 500mg/100ml Ns) 100 mls @ 100 mls/hr IVPB Q12 [facility] Last Admin: 02/12/17 10:16 Dose: 100 mls/hr Ketorolac Tromethamine (Toradol) 15 mg IVP Q6 PRN PRN Reason: Pain, moderate (4-7) Last Admin: 02/10/17 08:45 Dose: 15 mg Ondansetron HCl (Zofran Inj) 4 mg IVP Q4 PRN PRN Reason: Nausea/Vomiting Oxycodone/Acetaminophen (Percocet 5/325 Mg Tab) 1 tab PO Q4 PRN PRN Reason: Pain, Mild (1-3) Stop: 02/14/17 07:46 Last Admin: 02/11/17 10:55 Dose: 1 tab - Labs Labs: 02/12/17 07:30 - Constitutional Appears: Non-toxic, No Acute Distress - Eye Exam Eye Exam: EOMI, Normal appearance - Respiratory Exam Respiratory Exam: NORMAL BREATHING PATTERN. absent: Respiratory Distress - Cardiovascular Exam Cardiovascular Exam: +S1, +S2 - GI/Abdominal Exam GI & Abdominal Exam: Soft, Hernia (left inguinal hernia, soft, non tender). absent: Distended, Firm, Guarding, Rigid, Tenderness, Rebound - Neurological Exam Neurological Exam: Alert, Awake, Oriented x3 - Psychiatric Exam Psychiatric exam: Normal Affect, Normal Mood - Skin Skin Exam: Dry, Normal Color, Warm Assessment and Plan - Assessment and Plan (Free Text) Assessment: 47yo M with sigmoid diverticulitis - Tolerating low residue diet - Clear for discharge from surgical standpoint with PO Abx - Maintain low residue diet at home - Follow up outpatient for elective inguinal hernia repair. Card given to patient. - Discussed plan with Dr. Ben Rivera PGY-3
--- NOTE | 2017-02-12 12:06 | CP.PCM.PN ---
Subjective - Date & Time of Evaluation Date of Evaluation: 02/12/17 Time of Evaluation: 12:05 - Subjective Subjective: Still with some pain on LLQ area. Was given pain meds last night. Has no fever. Objective - Vital Signs/Intake and Output Vital Signs (last 24 hours): Temp Pulse Resp BP Pulse Ox 98 F 59 L 20 146/91 H 99 02/12/17 08:09 02/12/17 08:09 02/12/17 08:09 02/12/17 08:09 02/12/17 08:09 - Medications Medications: Current Medications Acetaminophen (Tylenol 325mg Tab) 650 mg PO Q4 PRN PRN Reason: Fever >100.4 F Docusate Sodium (Colace) 100 mg PO DAILY [facility] Last Admin: 02/12/17 10:16 Dose: 100 mg Hydromorphone HCl (Dilaudid) 0.5 mg IVP Q4 PRN PRN Reason: Pain, severe (8-10) Last Admin: 02/12/17 01:00 Dose: 0.5 mg Ciprofloxacin (Cipro 400mg/200ml Dsw) 400 mg in 200 mls @ 200 mls/hr IVPB Q12 [facility] Last Admin: 02/12/17 10:17 Dose: 200 mls/hr Metronidazole (Flagyl 500mg/100ml Ns) 100 mls @ 100 mls/hr IVPB Q12 [facility] Last Admin: 02/12/17 10:16 Dose: 100 mls/hr Ketorolac Tromethamine (Toradol) 15 mg IVP Q6 PRN PRN Reason: Pain, moderate (4-7) Last Admin: 02/10/17 08:45 Dose: 15 mg Ondansetron HCl (Zofran Inj) 4 mg IVP Q4 PRN PRN Reason: Nausea/Vomiting Oxycodone/Acetaminophen (Percocet 5/325 Mg Tab) 1 tab PO Q4 PRN PRN Reason: Pain, Mild (1-3) Stop: 02/14/17 07:46 Last Admin: 02/11/17 10:55 Dose: 1 tab - Labs Labs: 02/12/17 07:30
[2017-02-13] MEDS: Ciprofloxacin 400mg/200ml D5W 400 MG/200 ML BAG IVPB SCH (08:45)
[2017-02-13] MEDS: metroNIDAZOLE 500mg/100ml NS 100 ML IVPB SCH (09:10)
[2017-02-13 09:29] VITALS: O2SAT 98
--- NOTE | 2017-02-13 12:39 | CP.PCM.PN ---
Subjective - Date & Time of Evaluation Date of Evaluation: 02/13/17 Time of Evaluation: 09:00 - Subjective Subjective: less pain no fever iv rx renewed Objective - Vital Signs/Intake and Output Vital Signs (last 24 hours): Temp Pulse Resp BP Pulse Ox 98.4 F 70 20 137/87 98 02/13/17 09:29 02/13/17 09:29 02/13/17 09:29 02/13/17 09:29 02/13/17 09:29 - Medications Medications: Current Medications Acetaminophen (Tylenol 325mg Tab) 650 mg PO Q4 PRN PRN Reason: Fever >100.4 F Docusate Sodium (Colace) 100 mg PO DAILY [facility] Last Admin: 02/13/17 08:46 Dose: 100 mg Ciprofloxacin (Cipro 400mg/200ml Dsw) 400 mg in 200 mls @ 200 mls/hr IVPB Q12 [facility] Last Admin: 02/13/17 08:45 Dose: 200 mls/hr Metronidazole (Flagyl 500mg/100ml Ns) 100 mls @ 100 mls/hr IVPB Q12 [facility] Last Admin: 02/13/17 09:10 Dose: 100 mls/hr Ketorolac Tromethamine (Toradol) 15 mg IVP Q6 PRN PRN Reason: Pain, moderate (4-7) Last Admin: 02/12/17 22:09 Dose: 15 mg Ondansetron HCl (Zofran Inj) 4 mg IVP Q4 PRN PRN Reason: Nausea/Vomiting Oxycodone/Acetaminophen (Percocet 5/325 Mg Tab) 1 tab PO Q4 PRN PRN Reason: Pain, Mild (1-3) Stop: 02/14/17 07:46 Last Admin: 02/11/17 10:55 Dose: 1 tab - Labs Labs: 02/12/17 07:30 - Constitutional Appears: Non-toxic, Chronically Ill - Head Exam Head Exam: NORMOCEPHALIC - Eye Exam Eye Exam: PERRL - ENT Exam ENT Exam: Mucous Membranes Dry - Neck Exam Neck Exam: Normal Inspection - Respiratory Exam Respiratory Exam: Clear to Ausculation Bilateral - Cardiovascular Exam Cardiovascular Exam: REGULAR RHYTHM - GI/Abdominal Exam GI & Abdominal Exam: Distended, Soft - Rectal Exam Rectal Exam: Deferred - Extremities Exam Extremities Exam: absent: Pedal Edema - Back Exam Back Exam: absent: CVA tenderness (L), CVA tenderness (R) - Neurological Exam Neurological Exam: Alert, Awake, Oriented x3 - Psychiatric Exam Psychiatric exam: Normal Mood - Skin Skin Exam: Dry Assessment and Plan (1) Colonic diverticular abscess Status: Acute (2) Diverticulitis Status: Acute (3) Alcohol abuse Status: Acute - Assessment and Plan (Free Text) Assessment: cont antibiotics 14 days GI follow up/ colonoscopy as out pt
--- NOTE | 2017-02-13 13:04 | CP.PCM.PN ---
Subjective - Date & Time of Evaluation Date of Evaluation: 02/13/17 Time of Evaluation: 07:00 - Subjective Subjective: GENERAL SURGERY PROGRESS NOTE FOR DR. PARRY Patient seen and examined at bedside. He reports that his pain is completely gone and he feels great. He is tolerating his low residue diet and denies nausea or vomiting. He reports that he is passing flatus and had BMs. Objective - Vital Signs/Intake and Output Vital Signs (last 24 hours): Temp Pulse Resp BP Pulse Ox 98.4 F 70 20 137/87 98 02/13/17 09:29 02/13/17 09:29 02/13/17 09:29 02/13/17 09:29 02/13/17 09:29 - Medications Medications: Current Medications Acetaminophen (Tylenol 325mg Tab) 650 mg PO Q4 PRN PRN Reason: Fever >100.4 F Docusate Sodium (Colace) 100 mg PO DAILY [facility] Last Admin: 02/13/17 08:46 Dose: 100 mg Ciprofloxacin (Cipro 400mg/200ml Dsw) 400 mg in 200 mls @ 200 mls/hr IVPB Q12 [facility] Last Admin: 02/13/17 08:45 Dose: 200 mls/hr Metronidazole (Flagyl 500mg/100ml Ns) 100 mls @ 100 mls/hr IVPB Q12 [facility] Last Admin: 02/13/17 09:10 Dose: 100 mls/hr Ketorolac Tromethamine (Toradol) 15 mg IVP Q6 PRN PRN Reason: Pain, moderate (4-7) Last Admin: 02/12/17 22:09 Dose: 15 mg Ondansetron HCl (Zofran Inj) 4 mg IVP Q4 PRN PRN Reason: Nausea/Vomiting Oxycodone/Acetaminophen (Percocet 5/325 Mg Tab) 1 tab PO Q4 PRN PRN Reason: Pain, Mild (1-3) Stop: 02/14/17 07:46 Last Admin: 02/11/17 10:55 Dose: 1 tab - Labs Labs: 02/12/17 07:30 - Constitutional Appears: Non-toxic, No Acute Distress - Respiratory Exam Respiratory Exam: NORMAL BREATHING PATTERN. absent: Respiratory Distress - Cardiovascular Exam Cardiovascular Exam: +S1, +S2 - GI/Abdominal Exam GI & Abdominal Exam: Soft. absent: Distended, Firm, Tenderness, Rebound Assessment and Plan - Assessment and Plan (Free Text) Assessment: 47yo M with sigmoid diverticulitis - Tolerating low residue diet - Clear for discharge from surgical standpoint with PO Abx - Maintain low residue diet at home - Follow up outpatient for elective inguinal hernia repair. Card given to patient. - Discussed plan with Dr. Ben Rivera PGY-3
[2017-02-13 16:26] VITALS: BP 124/80; PULSE 65; RESP 16; TEMP 98.3
== END 2017-02-13 17:43 | disposition home or self-care (01) | DRG 392 ==
LOC: H.ER 08:09 → H.ERHOLD 12:15 → H.MEDSURG1 14:54
PROVIDERS: ADMIT Family Medicine; ATTEND Family Medicine
DX: K57.20 Diverticulitis of large intestine with perforation and abscess without bleeding (principal); D72.829 Elevated white blood cell count, unspecified; F10.10 Alcohol abuse, uncomplicated; F17.200 Nicotine dependence, unspecified, uncomplicated; K40.90 Unilateral inguinal hernia, without obstruction or gangrene, not specified as recurrent; K59.00 Constipation, unspecified; N50.812 Left testicular pain; R05 Cough; Z90.49 Acquired absence of other specified parts of digestive tract; M54.9 Dorsalgia, unspecified

== ENCOUNTER 2017-06-08 15:39 | Inpatient (IN) | payer BC ==
[2017-06-08 15:39] VITALS: BMI 24.3
[2017-06-08] MEDS ORDERED: Sodium Chloride 0.9% 1,000 ML IV STA (16:08)
[2017-06-08] MEDS ORDERED: Iohexol 240 (50 ml) PO ONE (16:24)
[2017-06-08] MEDS ORDERED: Iohexol 240 (50 ml) ONE (16:34)
--- NOTE | 2017-06-08 17:06 | ED PDOC ---
HPI: Abdomen Time Seen by Provider: 06/08/17 16:06 Chief Complaint (Nursing): Abdominal Pain Chief Complaint (Provider): Abdominal Pain History Per: Patient History/Exam Limitations: no limitations Current Symptoms Are (Timing): Still Present Location Of Pain/Discomfort: Epigastric, LLQ Additional Complaint(s): 47 y/o male with past medical history of diverticulitis, who presents to the ED complaining of left lower quadrant pain associated with nausea and diarrhea. Pain is sharp and radiates to the back. Patient feels weakness but denies syncope or dizziness. He received colonoscopy by Dr. Shearer on 05/23/2017. Denies fever, melena, blood in rectum or any further medical complaints. PMD: Soren Mcgraw MD Past Medical History Reviewed: Historical Data, Nursing Documentation, Vital Signs Vital Signs: Last Vital Signs Temp 98.9 F 06/08/17 16:00 Pulse 98 H 06/08/17 16:00 Resp 16 06/08/17 16:00 BP 135/85 06/08/17 16:00 Pulse Ox 99 06/08/17 19:13 - Medical History PMH: Denies: Chronic Kidney Disease - Surgical History Surgical History: Appendectomy (1994) Other surgeries: Colonoscopy - Family History Family History: States: Unknown Family Hx - Social History Current smoker - smoking cessation education provided: Yes (Heavy Smoker > 10 cigarettes daily) Alcohol: Social Drugs: Other (Marijuana) - Immunization History Hx Tetanus Toxoid Vaccination: No Hx Influenza Vaccination: No Hx Pneumococcal Vaccination: No - Home Medications Home Medications: Ambulatory Orders Medication Instructions Recorded No Known Home Med 02/09/17 - Allergies Allergies/Adverse Reactions: Allergies Allergy/AdvReac Type Severity Reaction Status Date / Time No Known Allergies Allergy Verified 06/08/17 15:59 Review of Systems ROS Statement: Except As Marked, All Systems Reviewed And Found Negative (As per HPI, otherwise negative) Constitutional: Positive for: Weakness. Negative for: Fever Gastrointestinal: Positive for: Abdominal Pain (sharp pain in left lower quadrant that radiates to the back). Negative for: Melena, Other (Blood in rectum) Neurological: Negative for: Dizziness, Other (syncope) Physical Exam - Reviewed Nursing Documentation Reviewed: Yes Vital Signs Reviewed: Yes - Physical Exam Appears: Positive for: Non-toxic, No Acute Distress Skin: Positive for: Normal Color, Warm, Dry Cardiovascular/Chest: Positive for: Regular Rate, Rhythm. Negative for: Murmur Respiratory: Positive for: Normal Breath Sounds. Negative for: Accessory Muscle Use, Respiratory Distress Gastrointestinal/Abdominal: Positive for: Tenderness (Left lower quadrant and epigastric tenderness) Neurologic/Psych: Positive for: Alert, Oriented (x3) - Laboratory Results Result Diagrams: 06/08/17 17:08 06/08/17 17:08 - ECG O2 Sat by Pulse Oximetry: 99 (RA) Pulse Ox Interpretation: Normal Medical Decision Making Medical Decision Making: Time: 16:08 Plan: --Abd Pelvis PO & IV contrast --CMP --Lipase --CBC w/ diff --Omnipaque 50 ml PO --Toradol 15mg IN --Sodium Chloride 1L IV --Zofran 4mg IV --Urinalysis --Reevaluation Time: 18:43 CT Abdomen/Pelvis FINDINGS: LOWER THORAX: Unremarkable. LIVER: Normal size, contour and attenuation. Several punctate calcifications consistent with old granulomatous disease. No mass. No biliary dilatation. GALLBLADDER AND BILE DUCTS: No calcified gallstones. No mural thickening. There is trace pericholecystic fluid common nonspecific. PANCREAS: Unremarkable. No gross lesion or ductal dilatation. SPLEEN: Spleen upper limits of normal size. No focal mass. ADRENALS: Unremarkable. No mass. KIDNEYS AND URETERS: Unremarkable. No hydronephrosis. No solid mass. VASCULATURE: Unremarkable. No aortic aneurysm. BOWEL: There is acute sigmoid diverticulitis with mural thickening and extensive perisigmoid inflammatory change and trace fluid. No evidence of abscess. There is mural thickening of a longer segment of sigmoid colon, nonspecific. This may be the result of diverticulitis or may reflect muscular hypertrophy from chronic diverticulosis. No free air. Followup to clearing to exclude underlying neoplasm. There is mural thickening of the cecum and proximal ascending colon, and mural thickening of a segment of distal and terminal ileum. This is nonspecific. Consider infectious or inflammatory etiology such as Crohn's disease. No other abnormal bowel loops are identified. There is no bowel obstruction. APPENDIX: Not identified. PERITONEUM: Unremarkable. No free fluid. No free air. LYMPH NODES: Unremarkable. No enlarged lymph nodes. BLADDER: Poorly distended. Grossly normal. REPRODUCTIVE: Unremarkable prostate BONES: No acute fracture. OTHER FINDINGS: None. IMPRESSION: Acute sigmoid diverticulitis without evidence of abscess or free air. There is mural thickening of a longer segment of sigmoid colon, possibly related to chronic diverticular disease. . Followup to clearing to exclude underlying neoplasm. Mural thickening of the cecum and proximal descending colon and of the distal and terminal ileum. This may be infectious or inflammatory in etiology. Incidentally noted trace pericholecystic fluid common nonspecific. Please correlate with examination. Patient remains w pain, appears cognitively slow- does not remember his admission from january for same. D/w Dr Mcgraw, will place obs med surg. Required repetitive doses analgesics. Antibiotics initiated. Scribe Attestation: Documented by Abran Hernandez acting as a scribe for Blanco Holt MD. Scribe Attestation: All medical record entries made by the Scribe were at my direction and personally dictated by me. I have reviewed the chart and agree that the record accurately reflects my personal performance of the history, physical exam, medical decision making, and the department Disposition - Clinical Impression Clinical Impression: Diverticulitis - Patient ED Disposition Is Patient to be Admitted: Yes - Disposition Disposition Time: 18:50 Condition: STABLE - Pt Status Changed To: Hospital Disposition Of: Observation - POA Present On Arrival: None
[2017-06-08 17:16] LABS: BASO % 0.3 % (0.0-2.0); HEMATOCRIT 49.9 % (35.0-51.0); LYMPH # 0.7 K/uL (1.0-4.3); LYMPH % 6.5 % (20.0-40.0); MEAN CORPUSCULAR HEMOGLOBIN 31.4 pg (27.0-31.0); MEAN CORPUSCULAR HGB CONC 32.7 g/dL (33.0-37.0); MEAN PLATELET VOLUME 8.5 fl (7.2-11.7); MONO # 0.8 K/uL (0.0-0.8); NEUT # 9.5 K/uL (1.8-7.0); NEUT % 86.2 % (50.0-75.0); NRBC % 0.2 % (0.0-0.0); PLATELET COUNT 249 K/uL (130-400); RED CELL DISTRIBUTION WIDTH 13.4 % (11.5-14.5)
[2017-06-08 17:32] LABS: URINE BILIRUBIN NEGATIVE (NEGATIVE); URINE BLOOD SMALL (NEGATIVE); URINE COLOR AMBER (YELLOW); URINE GLUCOSE (UA) NEG (Normal); URINE KETONE NEGATIVE (NEGATIVE); URINE LEUKOCYTE ESTERASE NEG Leu/uL (Negative); URINE PROTEIN 100 mg/dL (NEGATIVE); URINE UROBILINOGEN 0.2-1.0 mg/dL (0.2-1.0); WBC URINE 2 /hpf (0-5)
[2017-06-08 17:33] LABS: RBC URINE 5 /hpf (0-3)
[2017-06-08 17:37] LABS: ALKALINE PHOSPHATASE 81 U/L (38-126); ALT/SGPT 39 U/L (21-72); AST/SGOT 38 U/L (17-59); BILIRUBIN,TOTAL 0.5 mg/dl (0.2-1.3); BLOOD UREA NITROGEN 19 mg/dl (9-20); CALCIUM 9.7 mg/dL (8.4-10.2); CARBON DIOXIDE 23 mmol/L (22-30); CHLORIDE 95 mmol/L (98-107); GFR AFRICAN-AMERICAN > 60; GLUCOSE,RANDOM 107 mg/dL (75-110); LIPASE 103 U/L (23-300); POTASSIUM 4.1 MMOL/L (3.6-5.0); SODIUM 134 mmol/l (132-148); TOTAL PROTEIN 8.8 G/DL (6.3-8.2)
[2017-06-08 17:43] LABS: NEUTROPHIL 79 % (42-75); TOTAL CELLS COUNTED 100
[2017-06-08 17:46] LABS: ALB/GLOB RATIO 1.2 (1.0-2.1)
[2017-06-08] MEDS ORDERED: Iohexol 300 100 ML IJ ONE (17:52)
[2017-06-08] MEDS ORDERED: Sodium Chloride 0.9% 50 ML IV ONE (17:52)
--- NOTE | 2017-06-08 18:45 | CT ---
PROCEDURE: CT Abdomen and Pelvis with contrast HISTORY: epigastric and LLQ pain/tenderness COMPARISON: 02/09/2017 TECHNIQUE: Contrast dose: 95 mL Omnipaque 300 Radiation dose: Total exam DLP = 585.34 mGy-cm. This CT exam was performed using one or more of the following dose reduction techniques: Automated exposure control, adjustment of the mA and/or kV according to patient size, and/or use of iterative reconstruction technique. FINDINGS: LOWER THORAX: Unremarkable. LIVER: Normal size, contour and attenuation. Several punctate calcifications consistent with old granulomatous disease. No mass. No biliary dilatation. GALLBLADDER AND BILE DUCTS: No calcified gallstones. No mural thickening. There is trace pericholecystic fluid common nonspecific. PANCREAS: Unremarkable. No gross lesion or ductal dilatation. SPLEEN: Spleen upper limits of normal size. No focal mass. ADRENALS: Unremarkable. No mass. KIDNEYS AND URETERS: Unremarkable. No hydronephrosis. No solid mass. VASCULATURE: Unremarkable. No aortic aneurysm. BOWEL: There is acute sigmoid diverticulitis with mural thickening and extensive perisigmoid inflammatory change and trace fluid. No evidence of abscess. There is mural thickening of a longer segment of sigmoid colon, nonspecific. This may be the result of diverticulitis or may reflect muscular hypertrophy from chronic diverticulosis. No free air. Followup to clearing to exclude underlying neoplasm. There is mural thickening of the cecum and proximal ascending colon, and mural thickening of a segment of distal and terminal ileum. This is nonspecific. Consider infectious or inflammatory etiology such as Crohn's disease. No other abnormal bowel loops are identified. There is no bowel obstruction. APPENDIX: Not identified. PERITONEUM: Unremarkable. No free fluid. No free air. LYMPH NODES: Unremarkable. No enlarged lymph nodes. BLADDER: Poorly distended. Grossly normal. REPRODUCTIVE: Unremarkable prostate BONES: No acute fracture. OTHER FINDINGS: None. IMPRESSION: Acute sigmoid diverticulitis without evidence of abscess or free air. There is mural thickening of a longer segment of sigmoid colon, possibly related to chronic diverticular disease. . Followup to clearing to exclude underlying neoplasm. Mural thickening of the cecum and proximal descending colon and of the distal and terminal ileum. This may be infectious or inflammatory in etiology. Incidentally noted trace pericholecystic fluid common nonspecific. Please correlate with examination.
[2017-06-08] MEDS ORDERED: Ciprofloxacin 400mg/200ml D5W 400 MG/200 ML BAG IVPB STA (19:13)
[2017-06-08] MEDS ORDERED: metroNIDAZOLE 500mg/100ml NS 100 ML IVPB SCH (19:15)
[2017-06-08] MEDS ORDERED: Morphine 4 MG/ML VIAL IV STA (19:16)
[2017-06-08] MEDS ORDERED: Ciprofloxacin 400mg/200ml D5W 400 MG/200 ML BAG IVPB ONE (19:34)
[2017-06-08] MEDS ORDERED: Morphine 4 MG/ML VIAL ONE (19:34)
[2017-06-08] MEDS: Dextrose 5%/Lactated Ringer's 1,000 ML IV SCH (21:41)
[2017-06-09] MEDS: Dextrose 5%/Lactated Ringer's 1,000 ML IV SCH ×3 (04:06→14:00)
[2017-06-09 07:00] LABS: BASO % 0.3 % (0.0-2.0); EOS # 0.1 K/uL (0.0-0.7); EOS % 0.8 % (0.0-4.0); HEMATOCRIT 43.5 % (35.0-51.0); LYMPH # 0.8 K/uL (1.0-4.3); MEAN CELL VOLUME 95.6 fl (80.0-94.0); MEAN CORPUSCULAR HEMOGLOBIN 31.4 pg (27.0-31.0); MEAN CORPUSCULAR HGB CONC 32.9 g/dL (33.0-37.0); MEAN PLATELET VOLUME 7.8 fl (7.2-11.7); MONO # 0.8 K/uL (0.0-0.8); NEUT # 5.9 K/uL (1.8-7.0); NEUT % 77.9 % (50.0-75.0); NRBC % 0.1 % (0.0-0.0); RED CELL DISTRIBUTION WIDTH 13.3 % (11.5-14.5); WHITE BLOOD COUNT 7.5 K/uL (4.8-10.8)
[2017-06-09 07:13] LABS: ALB/GLOB RATIO 1.2 (1.0-2.1); ALKALINE PHOSPHATASE 60 U/L (38-126); ALT/SGPT 34 U/L (21-72); AST/SGOT 29 U/L (17-59); BILIRUBIN,TOTAL 0.3 mg/dl (0.2-1.3); BLOOD UREA NITROGEN 12 mg/dl (9-20); CALCIUM 8.6 mg/dL (8.4-10.2); CARBON DIOXIDE 26 mmol/L (22-30); CHLORIDE 98 mmol/L (98-107); GFR AFRICAN-AMERICAN > 60; GLUCOSE,RANDOM 111 mg/dL (75-110); POTASSIUM 3.9 MMOL/L (3.6-5.0); SODIUM 134 mmol/l (132-148)
[2017-06-09] MEDS: Ciprofloxacin 400mg/200ml D5W 400 MG/200 ML BAG IVPB SCH ×2 (09:10→21:28)
--- NOTE | 2017-06-09 11:38 | CP.PCM.HP ---
History of Present Illness - History of Present Illness History of Present Illness: Patient seen and examined with Dr. Mcgraw. 47 year old male presented with 3 day history of worsening abdominal pain. Patient is having diarrhea, lack of appetite, nausea. He was scheduled to see PMD on Tuesday,but was unable to make it due to symptoms.Patient has severe pain , only able to lay on right side. Having diarrhea, last BM was 15 minutes ago, watery. Patient crying during interview due to pain. No significant past medical history. 12 point review of systems otherwise negative. PMD: Dr. Mcgraw Medications: none Allergies NKDa Surgical hx; none Present on Admission - Present on Admission Any Indicators Present on Admission: No Past Patient History - Infectious Disease Hx of Infectious Diseases: None - Past Medical History & Family History Past Medical History?: Yes - Past Social History Smoking Status: Light Smoker < 10 Cigarettes Daily - CARDIAC Hx Cardiac Disorders: No - PULMONARY Hx Respiratory Disorders: No - NEUROLOGICAL Hx Neurological Disorder: No - HEENT Hx HEENT Problems: No - RENAL Hx Chronic Kidney Disease: No - ENDOCRINE/METABOLIC Hx Endocrine Disorders: No - HEMATOLOGICAL/ONCOLOGICAL Hx Blood Disorders: No - INTEGUMENTARY Hx Dermatological Problems: No - MUSCULOSKELETAL/RHEUMATOLOGICAL Hx Musculoskeletal Disorders: No Hx Falls: No - GASTROINTESTINAL Hx Gastrointestinal Disorders: Yes Hx Diverticulitis: Yes - GENITOURINARY/GYNECOLOGICAL Hx Genitourinary Disorders: No - PSYCHIATRIC Hx Psychophysiologic Disorder: Yes Hx Substance Use: Yes (Marijuana user) - SURGICAL HISTORY Hx Surgeries: Yes Hx Appendectomy: Yes (1994) Other/Comment: Colonoscopy - ANESTHESIA Hx Anesthesia: Yes Hx Anesthesia Reactions: No Meds Allergies/Adverse Reactions: Allergies Allergy/AdvReac Type Severity Reaction Status Date / Time No Known Allergies Allergy Verified 06/08/17 15:59 Physical Exam - Constitutional Appears: In Acute Distress (2' to pain) - Head Exam Head Exam: ATRAUMATIC, NORMAL INSPECTION, NORMOCEPHALIC - Eye Exam Eye Exam: EOMI, Normal appearance, PERRL - ENT Exam ENT Exam: Mucous Membranes Moist - Respiratory Exam Respiratory Exam: Clear to Auscultation Bilateral, NORMAL BREATHING PATTERN - Cardiovascular Exam Cardiovascular Exam: REGULAR RHYTHM, +S1, +S2. absent: Bradycardia, Tachycardia , Diastolic murmur, Systolic Murmur - GI/Abdominal Exam GI & Abdominal Exam: Diminished Bowel Sounds, Guarding, Soft, Tenderness ( midepigastric, left lower quadrant). absent: Distended, Organomegaly - Rectal Exam Rectal Exam: Deferred - Neurological Exam Neurological exam: Alert, CN II-XII Intact, Oriented x3 - Skin Skin Exam: Dry, Intact, Normal Color, Warm Results - Vital Signs Recent Vital Signs: Last Vital Signs Temp 98.6 F 06/09/17 08:42 Pulse 79 06/09/17 08:42 Resp 18 06/09/17 08:42 BP 116/78 06/09/17 08:42 Pulse Ox 99 06/09/17 08:42 - Labs Result Diagrams: 06/09/17 06:20 06/09/17 06:20 Labs: Laboratory Results - last 24 hr 06/08/17 06/08/17 06/08/17 17:08 17:08 17:08 WBC 11.0 H RBC 5.19 Hgb 16.3 D Hct 49.9 MCV 96.0 H MCH 31.4 H MCHC 32.7 L RDW 13.4 Plt Count 249 MPV 8.5 Neut % (Auto) 86.2 H Lymph % (Auto) 6.5 L [place] % (Auto) 7.0 Eos % (Auto) 0.0 Baso % (Auto) 0.3 Neut # 9.5 H Lymph # 0.7 L [place] # 0.8 Eos # 0.0 Baso # 0.0 Neutrophils % (Manual) 79 H Band Neutrophils % 5 H Lymphocytes % (Manual) 8 L Monocytes % (Manual) 8 Toxic Granulation Present Platelet Estimate Normal Macrocytosis (manual) Slight ESR Sodium 134 Potassium 4.1 Chloride 95 L Carbon Dioxide 23 Anion Gap 20 BUN 19 Creatinine 1.1 Est GFR ( Amer) > 60 Est GFR (Non-Af Amer) > 60 Random Glucose 107 Calcium 9.7 Total Bilirubin 0.5 AST 38 ALT 39 Alkaline Phosphatase 81 Total Protein 8.8 H Albumin 4.9 Globulin 3.9 Albumin/Globulin Ratio 1.2 Lipase 103 Urine Color [place] Urine Clarity Slighty-cloudy Urine pH 5.0 Ur Specific [place] 1.033 H Urine Protein 100 Urine Glucose (UA) Neg Urine Ketones Negative Urine Blood Small Urine Nitrate Negative Urine Bilirubin Negative Urine Urobilinogen 0.2-1.0 Ur Leukocyte Esterase Neg Urine RBC (Auto) 5 H Urine Microscopic WBC 2 Ur Squamous Epith Cells 2 06/09/17 06/09/17 06:20 06:20 WBC 7.5 RBC 4.55 Hgb 14.3 D Hct 43.5 MCV 95.6 H MCH 31.4 H MCHC 32.9 L RDW 13.3 Plt Count 201 MPV 7.8 Neut % (Auto) 77.9 H Lymph % (Auto) 11.0 L [place] % (Auto) 10.0 Eos % (Auto) 0.8 Baso % (Auto) 0.3 Neut # 5.9 Lymph # 0.8 L [place] # 0.8 Eos # 0.1 Baso # 0.0 Neutrophils % (Manual) Band Neutrophils % Lymphocytes % (Manual) Monocytes % (Manual) Toxic Granulation Platelet Estimate Macrocytosis (manual) ESR 12 Sodium 134 Potassium 3.9 Chloride 98 Carbon Dioxide 26 Anion Gap 14 BUN 12 Creatinine 0.9 Est GFR ( Amer) > 60 Est GFR (Non-Af Amer) > 60 Random Glucose 111 H Calcium 8.6 Total Bilirubin 0.3 AST 29 ALT 34 Alkaline Phosphatase 60 Total Protein 7.0 Albumin 3.8 Globulin 3.3 Albumin/Globulin Ratio 1.2 Lipase Urine Color Urine Clarity Urine pH Ur Specific [place] Urine Protein Urine Glucose (UA) Urine Ketones Urine Blood Urine Nitrate Urine Bilirubin Urine Urobilinogen Ur Leukocyte Esterase Urine RBC (Auto) Urine Microscopic WBC Ur Squamous Epith Cells Assessment & Plan (1) Diverticulitis of sigmoid colon Assessment and Plan: 47 year old male with no significant PMH admitted for diverticulitis of sigmoid colon. Leukocytosis resolved. pt has been afebrile. No appetite, will keep NPO for now. IVF D5/LR BACID/CIPRO/FLAGYL dilaudid for pain. Status: Acute (2) DVT prophylaxis Assessment and Plan: lovenox case d/w Dr. Mcgraw Status: Acute
[2017-06-09] MEDS: Enoxaparin 40 mg Syringe SC SCH (12:40)
[2017-06-09] MEDS: Lactobacillus Acidophilus 500 MU Cap PO SCH (17:27)
[2017-06-10 06:36] LABS: BASO % 0.5 % (0.0-2.0); EOS # 0.2 K/uL (0.0-0.7); HEMATOCRIT 42.6 % (35.0-51.0); LYMPH % 11.8 % (20.0-40.0); MEAN CELL VOLUME 96.2 fl (80.0-94.0); MEAN CORPUSCULAR HEMOGLOBIN 31.5 pg (27.0-31.0); MEAN CORPUSCULAR HGB CONC 32.7 g/dL (33.0-37.0); MONO % 11.1 % (0.0-10.0); NEUT # 6.5 K/uL (1.8-7.0); NEUT % 74.6 % (50.0-75.0); RED CELL DISTRIBUTION WIDTH 13.4 % (11.5-14.5); WHITE BLOOD COUNT 8.7 K/uL (4.8-10.8)
[2017-06-10 06:44] LABS: BLOOD UREA NITROGEN 7 mg/dl (9-20); CALCIUM 8.6 mg/dL (8.4-10.2); CARBON DIOXIDE 30 mmol/L (22-30); CHLORIDE 98 mmol/L (98-107); GFR AFRICAN-AMERICAN > 60; GLUCOSE,RANDOM 96 mg/dL (75-110); POTASSIUM 4.8 MMOL/L (3.6-5.0); SODIUM 135 mmol/l (132-148)
[2017-06-10] MEDS: Lactobacillus Acidophilus 500 MU Cap PO SCH ×2 (09:19→17:21)
[2017-06-10] MEDS: Ciprofloxacin 400mg/200ml D5W 400 MG/200 ML BAG IVPB SCH ×2 (09:19→20:07)
[2017-06-10] MEDS: Enoxaparin 40 mg Syringe SC SCH (09:20)
--- NOTE | 2017-06-10 22:06 | CP.PCM.PN ---
Subjective - Date & Time of Evaluation Date of Evaluation: 06/10/17 Time of Evaluation: 22:03 - Subjective Subjective: Patient continues to have a lot of pain in the LLQ area. Has a lot of diarrhea/ loose stools. Has no fever. Noted normal WBC Claims that he had a colonoscopy with biopsy of polyp in May 23. Noted rapid weight loss since April. Noted intramural thickening of colon via CT scan Objective - Vital Signs/Intake and Output Vital Signs (last 24 hours): Temp Pulse Resp BP Pulse Ox 99.7 F H 85 18 120/74 99 06/10/17 17:00 06/10/17 17:00 06/10/17 17:00 06/10/17 17:00 06/10/17 17:00 - Medications Medications: Current Medications Enoxaparin Sodium (Lovenox) 40 mg SC DAILY EMILY PRN Reason: Protocol Last Admin: 06/10/17 09:20 Dose: 40 mg Hydromorphone HCl (Dilaudid) 2 mg IVP Q4 PRN PRN Reason: Pain, severe (8-10) Last Admin: 06/10/17 19:49 Dose: 2 mg Hydromorphone HCl (Dilaudid) 1 mg IVP Q4 PRN PRN Reason: Pain, moderate (4-7) Metronidazole (Flagyl 500mg/100ml Ns) 100 mls @ 100 mls/hr IVPB ONCE EMILY PRN Reason: Protocol Ciprofloxacin (Cipro 400mg/200ml Dsw) 400 mg in 200 mls @ 200 mls/hr IVPB Q12 EMILY PRN Reason: Protocol Last Admin: 06/10/17 20:07 Dose: 200 mls/hr Lactobacillus Acidophilus (Bacid Acidophilus) 1 cap PO BID [facility] Last Admin: 06/10/17 17:21 Dose: 1 cap Metronidazole (Flagyl) 500 mg PO Q8 EMILY PRN Reason: Protocol Last Admin: 06/10/17 17:21 Dose: 500 mg Ondansetron HCl (Zofran Inj) 4 mg IVP Q6 PRN PRN Reason: Nausea/Vomiting Pantoprazole Sodium (Protonix Inj) 40 mg IVP DAILY [facility] Last Admin: 06/10/17 09:20 Dose: 40 mg - Labs Labs: 06/10/17 06:00 06/10/17 06:00 - Head Exam Head Exam: NORMAL INSPECTION - Eye Exam Eye Exam: Normal appearance - ENT Exam ENT Exam: Mucous Membranes Moist - Respiratory Exam Respiratory Exam: Clear to Ausculation Bilateral - Cardiovascular Exam Cardiovascular Exam: REGULAR RHYTHM - GI/Abdominal Exam GI & Abdominal Exam: Tenderness - Neurological Exam Neurological Exam: Awake, Oriented x3 Assessment and Plan (1) Abnormal weight loss Status: Acute (2) Diverticulitis of sigmoid colon Status: Acute - Assessment and Plan (Free Text) Plan: cont all meds follow up biopsy report Consult with Dr candelaria CE[facility]
[2017-06-11 07:43] LABS: BASO % 0.4 % (0.0-2.0); EOS # 0.2 K/uL (0.0-0.7); HEMATOCRIT 41.3 % (35.0-51.0); LYMPH # 1.2 K/uL (1.0-4.3); LYMPH % 12.1 % (20.0-40.0); MEAN CELL VOLUME 95.4 fl (80.0-94.0); MEAN CORPUSCULAR HEMOGLOBIN 31.7 pg (27.0-31.0); MEAN CORPUSCULAR HGB CONC 33.3 g/dL (33.0-37.0); MEAN PLATELET VOLUME 8.1 fl (7.2-11.7); MONO % 10.1 % (0.0-10.0); NEUT # 7.7 K/uL (1.8-7.0); NEUT % 75.4 % (50.0-75.0); RED CELL DISTRIBUTION WIDTH 13.3 % (11.5-14.5); WHITE BLOOD COUNT 10.2 K/uL (4.8-10.8)
[2017-06-11 08:22] LABS: T4 7.77 ug/dl (5.5-11.0)
[2017-06-11 08:35] LABS: CARCINOEMBRYONIC ANTIGEN 6.5 ng/mL (0-3.0); THYROID STIMULATING HORMONE 2.42 mIU/ML (0.46-4.68)
[2017-06-11 09:17] LABS: ALB/GLOB RATIO 1.2 (1.0-2.1); ALKALINE PHOSPHATASE 68 U/L (38-126); ALT/SGPT 36 U/L (21-72); AST/SGOT 26 U/L (17-59); BILIRUBIN,TOTAL 0.6 mg/dl (0.2-1.3); BLOOD UREA NITROGEN 4 mg/dl (9-20); CALCIUM 8.9 mg/dL (8.4-10.2); CARBON DIOXIDE 31 mmol/L (22-30); CHLORIDE 97 mmol/L (98-107); GFR AFRICAN-AMERICAN > 60; GLUCOSE,RANDOM 91 mg/dL (75-110); POTASSIUM 4.2 MMOL/L (3.6-5.0); SODIUM 136 mmol/l (132-148); TOTAL PROTEIN 6.8 G/DL (6.3-8.2)
[2017-06-11] MEDS: Ciprofloxacin 400mg/200ml D5W 400 MG/200 ML BAG IVPB SCH ×2 (09:38→21:11)
[2017-06-11] MEDS: Lactobacillus Acidophilus 500 MU Cap PO SCH ×2 (09:38→16:57)
[2017-06-11] MEDS: Enoxaparin 40 mg Syringe SC SCH (09:39)
--- NOTE | 2017-06-11 16:24 | CON ---
DATE: 06/11/2017 REFERRING PHYSICIAN: Soren Mcgraw MD HISTORY OF PRESENT ILLNESS: This is a 47-year-old gentleman, who was known to me from recent office visits and procedures, who approximately 9 or 10 days ago underwent a colonoscopy for persistent left lower quadrant pain and discomfort; the results of that colonoscopy were not available to me at that time; however, they are in my office and I will follow up on that. Apparently, I found diverticular disease and some polyps. Subsequent to that, he continued to have pain and discomfort. He had some diarrhea and a little bit of bleeding. The bleeding subsided after a couple of days, but his pain persisted, and he has been having some weight loss that was quite concerning to the patient, but because of the pain in the left lower quadrant, he came to the hospital where CAT scan was performed and showed a significant degree of sigmoid diverticulitis with acute inflammatory changes, and he was referred today for evaluation. At the time of my evaluation this morning, he is lying comfortably in bed, but complains of significant pain and discomfort in the left lower quadrant throughout the abdomen. He is really concerned about his weight loss, although he cannot quantify how much weight he has lost. He denies any nausea or vomiting. He has been tolerating liquids there. He has been afebrile over the last 48 hours, but he has significant pain which is not improved. MEDICATIONS: At home, he was not on any medications. ALLERGIES: HE DENIES ANY ALLERGIES. PAST MEDICAL HISTORY: Noncontributory. PAST SURGICAL HISTORY: He had an appendectomy. FAMILY HISTORY: Noncontributory. SOCIAL HISTORY: He does smoke tobacco, social alcohol. PHYSICAL EXAMINATION: GENERAL: This is a well-developed, well-nourished appearing gentleman, who is awake, alert and oriented, complaining of abdominal pain and discomfort. VITAL SIGNS: Completely stable. ABDOMEN: Soft with good bowel sounds, but he has significant tenderness particularly in the left lower quadrant to palpation. There are no palpable masses or lesions, however. LABORATORY DATA: His initial white blood cell count was elevated on admission to 11.0, today it is down to 10.2, but had been as low as 7.5. His hemoglobin has been stable and normal throughout. He did have a shift to the left initially with 79% neutrophils. His ESR was done, and it was normal; then a repeat was 19. SMA-7 was unremarkable. Of concern is that his CEA level is elevated at 6.5. CAT scan as mentioned, acute diverticulitis with mural thickening. IMPRESSION AND PLAN: A 47-year-old gentleman with acute sigmoid diverticulitis with significant pain and discomfort in left lower quadrant and some weight loss with an elevated carcinoembryonic antigen. I did perform a colonoscopy on him within the last 10 days, so I will now check my records to see what the findings were. However, I do not recall there being any significant findings of any tumors or lesions, but he did have diverticular disease. At the present time, I will keep him on clear liquids because of the degree of pain and discomfort he is in, continue with the current antibiotics that are being given. I did add Bentyl to be given 10 mg half an hour before each meal to see if that helps with his pain and discomfort, he might have some spasm from the inflammation in that sigmoid area, and I will follow along with you. If he has not had an upper endoscopy, he will certainly need one given the elevated carcinoembryonic antigen, which may just be due to smoking; however, it is 6.5 and given his weight loss, we will need to work up further to rule out any type of underlying malignancies. Alpha-fetoprotein level was normal. On the CAT scan, just of note, his liver and pancreas did not have any significant findings. Thank you very much for this referral, and I will follow along with you. Anthony Shearer MD
[2017-06-12] MEDS: Enoxaparin 40 mg Syringe SC SCH (08:24)
[2017-06-12] MEDS: Lactobacillus Acidophilus 500 MU Cap PO SCH ×2 (08:24→17:51)
[2017-06-12] MEDS: Ciprofloxacin 400mg/200ml D5W 400 MG/200 ML BAG IVPB SCH (09:40)
--- NOTE | 2017-06-12 13:34 | CP.PCM.PN ---
Subjective - Date & Time of Evaluation Date of Evaluation: 06/12/17 Time of Evaluation: 13:33 - Subjective Subjective: doing better today with less pain and tolerated diet PE vss abd - soft with +BS decreased tenderness imp/plan : diverticulitis improving colonoscopy was done 05/23/17 with report in chart repeat CT scan tomorrow Objective - Vital Signs/Intake and Output Vital Signs (last 24 hours): Temp Pulse Resp BP Pulse Ox 98.3 F 73 20 130/81 98 06/12/17 08:19 06/12/17 08:19 06/12/17 08:19 06/12/17 08:19 06/12/17 08:19 - Medications Medications: Current Medications Dicyclomine HCl (Bentyl) 10 mg PO TID [facility] Last Admin: 06/12/17 12:23 Dose: 10 mg Enoxaparin Sodium (Lovenox) 40 mg SC DAILY [facility] PRN Reason: Protocol Last Admin: 06/12/17 08:24 Dose: 40 mg Hydromorphone HCl (Dilaudid) 2 mg IVP Q4 PRN PRN Reason: Pain, severe (8-10) Last Admin: 06/12/17 12:56 Dose: 2 mg Hydromorphone HCl (Dilaudid) 1 mg IVP Q4 PRN PRN Reason: Pain, moderate (4-7) Metronidazole (Flagyl 500mg/100ml Ns) 100 mls @ 100 mls/hr IVPB ONCE EMILY PRN Reason: Protocol Ciprofloxacin (Cipro 400mg/200ml Dsw) 400 mg in 200 mls @ 200 mls/hr IVPB Q12 EMILY PRN Reason: Protocol Last Admin: 06/12/17 09:40 Dose: 200 mls/hr Iohexol (Omnipaque 240 (50 Ml)) 50 ml PO ONCE ONE Stop: 06/13/17 07:01 Lactobacillus Acidophilus (Bacid Acidophilus) 1 cap PO BID [facility] Last Admin: 06/12/17 08:24 Dose: 1 cap Metronidazole (Flagyl) 500 mg PO Q8 EMILY PRN Reason: Protocol Last Admin: 06/12/17 08:24 Dose: 500 mg Ondansetron HCl (Zofran Inj) 4 mg IVP Q6 PRN PRN Reason: Nausea/Vomiting Pantoprazole Sodium (Protonix Inj) 40 mg IVP DAILY [facility] Last Admin: 06/12/17 08:24 Dose: 40 mg - Labs Labs: 06/11/17 05:30 06/11/17 05:30
--- NOTE | 2017-06-12 14:14 | CP.PCM.CON ---
History of Present Illness - History of Present Illness History of Present Illness: 47 year old male presented with 3 day history of worsening abdominal pain. Found to have severe diverticultis by CT bucontinues to c/o abd pain and diarrhea Patient is having diarrhea, lack of appetite, nausea. He was scheduled to see PMD on Tuesday,but was unable to make it due to symptoms.Patient has severe pain, only able to lay on right side. No significant past medical history. Had a colonoscopy in early May with polypectomy 12 point review of systems otherwise negative. Surgical hx- appendectomy Review of Systems - Review of Systems All systems: reviewed and no additional remarkable complaints except - Constitutional Constitutional: As Per HPI, Weight Loss, Weakness - EENT Eyes: absent: As Per HPI, Blind Spots, Blurred Vision, Change in Vision, Decreased Night Vision, Diplopia, Discharge, Dry Eye, Exophthalmos, Floaters, Irritation, Itchy Eyes, Loss of Peripheral Vision, Pain, Photophobia, Requires Corrective Lenses, Sees Flashes, Spots in Vision, Tunnel Vision, Other Visual Disturbances, Loss of Vision, Other Ears: absent: As Per HPI, Decreased Hearing, Ear Discharge, Ear Pain, Tinnitus, Abnormal Hearing, Disequilibrium, Dizziness, Other Nose/Mouth/Throat: absent: As Per HPI, Epistaxis, Nasal Congestion, Nasal Discharge, Nasal Obstruction, Nasal Trauma, Nose Pain, Post Nasal Drip, Sinus Pain, Sinus Pressure, Bleeding Gums, Change in Voice, Dental Pain, Dry Mouth, Dysphagia, Halitosis, Hoarsness, Lip Swelling, Mouth Lesions, Mouth Pain, Odynophagia, Sore Throat, Throat Swelling, Tongue Swelling, Facial Pain, Neck Pain, Neck Mass, Other - Cardiovascular Cardiovascular: absent: As Per HPI, Acrocyanosis, Chest Pain, Chest Pain at Rest , Chest Pain with Activity, Claudication, Diaphoresis, Dyspnea, Dyspnea on Exertion, Edema, Irregular Heart Rhythm, Pain Radiating to Arm/Neck/Jaw, Leg Edema, Leg Ulcers, Lightheadedness, Orthopnea, Palpitations, Paroxysmal Nocturnal Dyspnea, Pedal Edema, Radiating Pain, Rapid Heart Rate, Slow Heart Rate, Syncope, Other - Respiratory Respiratory: absent: As Per HPI, Cough, Dyspnea, Hemoptysis, Dyspnea on Exertion , Wheezing, Snoring, Stridor, Pain on Inspiration, Chest Congestion, Excessive Mucous Production, Change in Mucous Color, Pain with Coughing, Other - Gastrointestinal Gastrointestinal: As Per HPI - Genitourinary Genitourinary: absent: As Per HPI, Change in Urinary Stream, Difficulty Urinating, Dysuria, Flank Pain, Hematuria, Pyuria, Nocturia, Urinary Incontinence, Urinary Frequency, Urinary Hesitance, Urinary Urgency, Voiding Freq/Small Amts, Freq UTI, Hx Renal/Bladder Calculi, Hx /Renal Surgery, Bladder Distension, Other - Musculoskeletal Musculoskeletal: absent: As Per HPI, Abnormal Gait, Arthralgias, Atrophy, Back Pain, Deformity, Joint Swelling, Limited Range of Motion, Loss of Height, Muscle Cramps, Muscle Weakness, Myalgias, Neck Pain, Numbness, Radiating Pain into Limb, Stiffness, Tingling, Other - Integumentary Integumentary: absent: As Per HPI, Acne, Alopecia, Bleeding Lesions, Change in Hair, Change in Nails, Change in Pigmentation, Changing Lesions, Dry Skin, Erythema, Furuncle, Hirsutism, Lesions, New Lesions, Non-Healing Lesions, Photosensitivity, Pruritus, Rash, Skin Pain, Skin Ulcer, Sores, Striae, Swelling , Unusual Bruising, Wounds, Jaundice, Other - Neurological Neurological: absent: As Per HPI, Abnormal Gait, Abnormal Hearing, Abnormal Movements, Abnormal Speech, Behavioral Changes, Burning Sensations, Confusion, Convulsions, Disequilibrium, Dizziness, Numbness, Focal Weakness, Frequent Falls , Headaches, Lack of Coordination, Loss of Vision, Memory Loss, Paresthesias, Radicular Pain, Restless Legs, Sensory Deficit, Syncope, Tingling, Tremor, Vertigo, Weakness, Other Visual Disturbances, Other - Psychiatric Psychiatric: absent: As Per HPI, Abnormal Sleep Pattern, Anhedonia, Anxiety, Auditory Hallucinations, Behavioral Changes, Change in Appetite, Change in Libido, Confusion, Depression, Difficulty Concentrating, Hallucinations, Homicidal Ideation, Hopelessness, Irritability, Memory Loss, Mood Swings, Panic Attacks, Paranoia, Suicidal Ideation, Visual Hallucinations, Tactile Hallucinations, Other - Endocrine Endocrine: absent: As Per HPI, Change in Body Appearance, Change in Libido, Cold Intolorance, Deepening of Voice, Excessive Sweating, Fatigue, Flushing, Heat Intolorance, Increase in Ring/Shoe/Hat Size, Palpitations, Polydipsia, Polyphagia, Polyuria, Other - Hematologic/Lymphatic Hematologic: absent: As Per HPI, Easy Bleeding, Easy Bruising, Lymphadenopathy, Other Past Patient History - Infectious Disease Hx of Infectious Diseases: None - Past Medical History & Family History Past Medical History?: Yes - Past Social History Smoking Status: Light Smoker < 10 Cigarettes Daily - CARDIAC Hx Cardiac Disorders: No - PULMONARY Hx Respiratory Disorders: No - NEUROLOGICAL Hx Neurological Disorder: No - HEENT Hx HEENT Problems: No - RENAL Hx Chronic Kidney Disease: No - ENDOCRINE/METABOLIC Hx Endocrine Disorders: No - HEMATOLOGICAL/ONCOLOGICAL Hx Blood Disorders: No - INTEGUMENTARY Hx Dermatological Problems: No - MUSCULOSKELETAL/RHEUMATOLOGICAL Hx Musculoskeletal Disorders: No Hx Falls: No - GASTROINTESTINAL Hx Gastrointestinal Disorders: Yes Hx Diverticulitis: Yes - GENITOURINARY/GYNECOLOGICAL Hx Genitourinary Disorders: No - PSYCHIATRIC Hx Psychophysiologic Disorder: Yes Hx Substance Use: Yes (Marijuana user) - SURGICAL HISTORY Hx Surgeries: Yes Hx Appendectomy: Yes (1994) Other/Comment: Colonoscopy - ANESTHESIA Hx Anesthesia: Yes Hx Anesthesia Reactions: No Meds Allergies/Adverse Reactions: Allergies Allergy/AdvReac Type Severity Reaction Status Date / Time No Known Allergies Allergy Verified 06/08/17 15:59 - Medications Medications: Current Medications Dicyclomine HCl (Bentyl) 10 mg PO TID [facility] Last Admin: 06/12/17 12:23 Dose: 10 mg Enoxaparin Sodium (Lovenox) 40 mg SC DAILY [facility] PRN Reason: Protocol Last Admin: 06/12/17 08:24 Dose: 40 mg Hydromorphone HCl (Dilaudid) 2 mg IVP Q4 PRN PRN Reason: Pain, severe (8-10) Last Admin: 06/12/17 12:56 Dose: 2 mg Hydromorphone HCl (Dilaudid) 1 mg IVP Q4 PRN PRN Reason: Pain, moderate (4-7) Metronidazole (Flagyl 500mg/100ml Ns) 100 mls @ 100 mls/hr IVPB ONCE [facility] PRN Reason: Protocol Ciprofloxacin (Cipro 400mg/200ml Dsw) 400 mg in 200 mls @ 200 mls/hr IVPB Q12 [facility] PRN Reason: Protocol Last Admin: 06/12/17 09:40 Dose: 200 mls/hr Iohexol (Omnipaque 240 (50 Ml)) 50 ml PO ONCE ONE Stop: 06/13/17 07:01 Lactobacillus Acidophilus (Bacid Acidophilus) 1 cap PO BID [facility] Last Admin: 06/12/17 08:24 Dose: 1 cap Metronidazole (Flagyl) 500 mg PO Q8 [facility] PRN Reason: Protocol Last Admin: 06/12/17 08:24 Dose: 500 mg Ondansetron HCl (Zofran Inj) 4 mg IVP Q6 PRN PRN Reason: Nausea/Vomiting Pantoprazole Sodium (Protonix Inj) 40 mg IVP DAILY [facility] Last Admin: 06/12/17 08:24 Dose: 40 mg Physical Exam - Constitutional Appears: Non-toxic, Cachectic, Chronically Ill - Head Exam Head Exam: ATRAUMATIC, NORMAL INSPECTION, NORMOCEPHALIC - Eye Exam Eye Exam: PERRL. absent: Scleral icterus - ENT Exam ENT Exam: Mucous Membranes Dry, Normal External Ear Exam, Normal Oropharynx - Neck Exam Neck exam: Negative for: Lymphadenopathy, Thyromegaly - Respiratory Exam Respiratory Exam: Decreased Breath Sounds, Clear to Auscultation Bilateral - Cardiovascular Exam Cardiovascular Exam: REGULAR RHYTHM, +S1, +S2 - GI/Abdominal Exam GI & Abdominal Exam: Diminished Bowel Sounds, Distended, Guarding, Soft, Tenderness. absent: Rebound, Rigid - Rectal Exam Rectal Exam: Deferred - Exam Exam: NORMAL INSPECTION - Extremities Exam Extremities exam: Positive for: pedal pulses present. Negative for: calf tenderness, joint swelling, pedal edema, tenderness - Back Exam Back exam: absent: CVA tenderness (L), CVA tenderness (R), paraspinal tenderness - Neurological Exam Neurological exam: Alert, CN II-XII Intact, Oriented x3, Reflexes Normal - Psychiatric Exam Psychiatric exam: Depressed - Skin Skin Exam: Dry Results - Vital Signs Recent Vital Signs: Last Vital Signs Temp 98.3 F 06/12/17 08:19 Pulse 73 06/12/17 08:19 Resp 20 06/12/17 08:19 BP 130/81 06/12/17 08:19 Pulse Ox 98 06/12/17 08:19 - Labs Result Diagrams: 06/11/17 05:30 06/11/17 05:30 Assessment & Plan (1) Abnormal weight loss Status: Acute (2) Diverticulitis Status: Acute - Assessment and Plan (Free Text) Assessment: cont iv antibiotics add zosyn follow up CT ceheck serologies and stool c diff GI eval
[2017-06-12] MEDS: Piperacillin/Tazobact 3.375 GM in Sodium Chloride 0.9% 100 ML IVPB SCH ×2 (16:50→22:32)
[2017-06-13] MEDS: Piperacillin/Tazobact 3.375 GM in Sodium Chloride 0.9% 100 ML IVPB SCH ×3 (05:41→21:33)
[2017-06-13] MEDS ORDERED: Iohexol 240 (50 ml) PO ONE (07:00)
[2017-06-13] MEDS ORDERED: Iohexol 300 100 ML IJ ONE (08:45)
[2017-06-13] MEDS ORDERED: Sodium Chloride 0.9% 50 ML IV ONE (08:45)
[2017-06-13] MEDS: Lactobacillus Acidophilus 500 MU Cap PO SCH ×2 (09:59→17:10)
[2017-06-13] MEDS: Enoxaparin 40 mg Syringe SC SCH (10:00)
--- NOTE | 2017-06-13 11:02 | CP.PCM.PN ---
Subjective - Date & Time of Evaluation Date of Evaluation: 06/11/17 Time of Evaluation: 09:30 - Subjective Subjective: Patient still has a lot of pain on the LLQ area, Has no fever. Objective - Vital Signs/Intake and Output Vital Signs (last 24 hours): Temp Pulse Resp BP Pulse Ox 98.4 F 80 20 110/69 100 06/13/17 08:03 06/13/17 08:03 06/13/17 08:03 06/13/17 08:03 06/13/17 08:03 - Medications Medications: Current Medications Dicyclomine HCl (Bentyl) 10 mg PO TID [facility] Last Admin: 06/13/17 09:59 Dose: 10 mg Enoxaparin Sodium (Lovenox) 40 mg SC DAILY [facility] PRN Reason: Protocol Last Admin: 06/13/17 10:00 Dose: 40 mg Hydromorphone HCl (Dilaudid) 2 mg IVP Q4 PRN PRN Reason: Pain, severe (8-10) Last Admin: 06/13/17 05:40 Dose: 2 mg Hydromorphone HCl (Dilaudid) 1 mg IVP Q4 PRN PRN Reason: Pain, moderate (4-7) Last Admin: 06/13/17 01:35 Dose: 1 mg Metronidazole (Flagyl 500mg/100ml Ns) 100 mls @ 100 mls/hr IVPB ONCE [facility] PRN Reason: Protocol Piperacillin Sod/Tazobactam (Sod 3.375 gm/ Sodium Chloride) 100 mls @ 100 mls/ hr IVPB Q8H [facility] PRN Reason: Protocol Last Admin: 06/13/17 05:41 Dose: 100 mls/hr Lactobacillus Acidophilus (Bacid Acidophilus) 1 cap PO BID [facility] Last Admin: 06/13/17 09:59 Dose: 1 cap Metronidazole (Flagyl) 500 mg PO Q8 [facility] PRN Reason: Protocol Last Admin: 06/13/17 10:00 Dose: 500 mg Ondansetron HCl (Zofran Inj) 4 mg IVP Q6 PRN PRN Reason: Nausea/Vomiting Pantoprazole Sodium (Protonix Inj) 40 mg IVP DAILY [facility] Last Admin: 06/13/17 10:00 Dose: 40 mg - Labs Labs: 06/11/17 05:30 06/11/17 05:30 Assessment and Plan (1) Abnormal weight loss Status: Acute (2) Diverticulitis of sigmoid colon Status: Acute
--- NOTE | 2017-06-13 11:02 | CP.PCM.PN ---
Subjective - Date & Time of Evaluation Date of Evaluation: 06/12/17 Time of Evaluation: 10:00 - Subjective Subjective: Patient was able to tolerate liquids Has less pain Has no fever. Objective - Vital Signs/Intake and Output Vital Signs (last 24 hours): Temp Pulse Resp BP Pulse Ox 98.4 F 80 20 110/69 100 06/13/17 08:03 06/13/17 08:03 06/13/17 08:03 06/13/17 08:03 06/13/17 08:03 - Medications Medications: Current Medications Dicyclomine HCl (Bentyl) 10 mg PO TID [facility] Last Admin: 06/13/17 09:59 Dose: 10 mg Enoxaparin Sodium (Lovenox) 40 mg SC DAILY [facility] PRN Reason: Protocol Last Admin: 06/13/17 10:00 Dose: 40 mg Hydromorphone HCl (Dilaudid) 2 mg IVP Q4 PRN PRN Reason: Pain, severe (8-10) Last Admin: 06/13/17 05:40 Dose: 2 mg Hydromorphone HCl (Dilaudid) 1 mg IVP Q4 PRN PRN Reason: Pain, moderate (4-7) Last Admin: 06/13/17 01:35 Dose: 1 mg Metronidazole (Flagyl 500mg/100ml Ns) 100 mls @ 100 mls/hr IVPB ONCE [facility] PRN Reason: Protocol Piperacillin Sod/Tazobactam (Sod 3.375 gm/ Sodium Chloride) 100 mls @ 100 mls/ hr IVPB Q8H [facility] PRN Reason: Protocol Last Admin: 06/13/17 05:41 Dose: 100 mls/hr Lactobacillus Acidophilus (Bacid Acidophilus) 1 cap PO BID [facility] Last Admin: 06/13/17 09:59 Dose: 1 cap Metronidazole (Flagyl) 500 mg PO Q8 [facility] PRN Reason: Protocol Last Admin: 06/13/17 10:00 Dose: 500 mg Ondansetron HCl (Zofran Inj) 4 mg IVP Q6 PRN PRN Reason: Nausea/Vomiting Pantoprazole Sodium (Protonix Inj) 40 mg IVP DAILY [facility] Last Admin: 06/13/17 10:00 Dose: 40 mg - Labs Labs: 06/11/17 05:30 06/11/17 05:30 Assessment and Plan (1) Abnormal weight loss Status: Acute (2) Diverticulitis of sigmoid colon Status: Acute
--- NOTE | 2017-06-13 11:03 | CP.PCM.PN ---
Subjective - Date & Time of Evaluation Date of Evaluation: 06/13/17 Time of Evaluation: 11:02 - Subjective Subjective: Patient is much better today Has less pain Tolerates soft diet Objective - Vital Signs/Intake and Output Vital Signs (last 24 hours): Temp Pulse Resp BP Pulse Ox 98.4 F 80 20 110/69 100 06/13/17 08:03 06/13/17 08:03 06/13/17 08:03 06/13/17 08:03 06/13/17 08:03 - Medications Medications: Current Medications Dicyclomine HCl (Bentyl) 10 mg PO TID [facility] Last Admin: 06/13/17 09:59 Dose: 10 mg Enoxaparin Sodium (Lovenox) 40 mg SC DAILY [facility] PRN Reason: Protocol Last Admin: 06/13/17 10:00 Dose: 40 mg Hydromorphone HCl (Dilaudid) 2 mg IVP Q4 PRN PRN Reason: Pain, severe (8-10) Last Admin: 06/13/17 05:40 Dose: 2 mg Hydromorphone HCl (Dilaudid) 1 mg IVP Q4 PRN PRN Reason: Pain, moderate (4-7) Last Admin: 06/13/17 01:35 Dose: 1 mg Metronidazole (Flagyl 500mg/100ml Ns) 100 mls @ 100 mls/hr IVPB ONCE [facility] PRN Reason: Protocol Piperacillin Sod/Tazobactam (Sod 3.375 gm/ Sodium Chloride) 100 mls @ 100 mls/ hr IVPB Q8H [facility] PRN Reason: Protocol Last Admin: 06/13/17 05:41 Dose: 100 mls/hr Lactobacillus Acidophilus (Bacid Acidophilus) 1 cap PO BID [facility] Last Admin: 06/13/17 09:59 Dose: 1 cap Metronidazole (Flagyl) 500 mg PO Q8 [facility] PRN Reason: Protocol Last Admin: 06/13/17 10:00 Dose: 500 mg Ondansetron HCl (Zofran Inj) 4 mg IVP Q6 PRN PRN Reason: Nausea/Vomiting Pantoprazole Sodium (Protonix Inj) 40 mg IVP DAILY [facility] Last Admin: 06/13/17 10:00 Dose: 40 mg - Labs Labs: 06/11/17 05:30 06/11/17 05:30 Assessment and Plan (1) Abnormal weight loss Status: Acute (2) Diverticulitis of sigmoid colon Status: Acute
--- NOTE | 2017-06-13 12:02 | CT ---
PROCEDURE: CT Abdomen and Pelvis with contrast HISTORY: repeat ct COMPARISON: 06/08/2017 TECHNIQUE: Contrast dose: 95 mL Omnipaque 300 Radiation dose: Total exam DLP = 450.83 mGy-cm. This CT exam was performed using one or more of the following dose reduction techniques: Automated exposure control, adjustment of the mA and/or kV according to patient size, and/or use of iterative reconstruction technique. FINDINGS: LOWER THORAX: Unremarkable. LIVER: Unremarkable. No gross lesion or ductal dilatation. GALLBLADDER AND BILE DUCTS: Unremarkable. PANCREAS: Unremarkable. No gross lesion or ductal dilatation. SPLEEN: Unremarkable. ADRENALS: Unremarkable. No mass. KIDNEYS AND URETERS: Unremarkable. No hydronephrosis. No solid mass. VASCULATURE: Unremarkable. No aortic aneurysm. BOWEL: There is marked thickening of the wall of the sigmoid colon and distal descending colon. There is pericolonic inflammatory change as on prior examination. There is no oral contrast seen within the lumen of the sigmoid colon on this examination. There is questionable small intramural abscess in the sigmoid colon measuring roughly 8 x 9 x 15 mm. This is best demonstrated on series 601, image 27. This is not considered a drainable collection at this time. There are no other abnormal bowel loops identified. There is no bowel obstruction. Previously identified mural thickening of the distal/terminal ileum and of the cecum and proximal ascending colon has resolved. Significance uncertain. APPENDIX: Not identified. PERITONEUM: Unremarkable. No free fluid. No free air. LYMPH NODES: Unremarkable. No enlarged lymph nodes. BLADDER: Poorly distended. No gross abnormality. REPRODUCTIVE: Normal prostate BONES: No acute fracture. OTHER FINDINGS: None. IMPRESSION: Sigmoid diverticulitis. Possible small intramural abscess. No pericolonic abscess or free air. Resolved mural thickening of the distal/terminal ileum and cecum/proximal ascending colon as compared to 06/06. No other significant abnormality
--- NOTE | 2017-06-13 12:44 | CP.PCM.PN ---
Subjective - Date & Time of Evaluation Date of Evaluation: 06/13/17 Time of Evaluation: 08:00 - Subjective Subjective: improving afebrile abd less tender Objective - Vital Signs/Intake and Output Vital Signs (last 24 hours): Temp Pulse Resp BP Pulse Ox 98.4 F 80 20 110/69 100 06/13/17 08:03 06/13/17 08:03 06/13/17 08:03 06/13/17 08:03 06/13/17 08:03 - Medications Medications: Current Medications Dicyclomine HCl (Bentyl) 10 mg PO TID [facility] Last Admin: 06/13/17 09:59 Dose: 10 mg Enoxaparin Sodium (Lovenox) 40 mg SC DAILY [facility] PRN Reason: Protocol Last Admin: 06/13/17 10:00 Dose: 40 mg Hydromorphone HCl (Dilaudid) 2 mg IVP Q4 PRN PRN Reason: Pain, severe (8-10) Last Admin: 06/13/17 05:40 Dose: 2 mg Hydromorphone HCl (Dilaudid) 1 mg IVP Q4 PRN PRN Reason: Pain, moderate (4-7) Last Admin: 06/13/17 01:35 Dose: 1 mg Metronidazole (Flagyl 500mg/100ml Ns) 100 mls @ 100 mls/hr IVPB ONCE [facility] PRN Reason: Protocol Piperacillin Sod/Tazobactam (Sod 3.375 gm/ Sodium Chloride) 100 mls @ 100 mls/ hr IVPB Q8H [facility] PRN Reason: Protocol Last Admin: 06/13/17 05:41 Dose: 100 mls/hr Lactobacillus Acidophilus (Bacid Acidophilus) 1 cap PO BID [facility] Last Admin: 06/13/17 09:59 Dose: 1 cap Metronidazole (Flagyl) 500 mg PO Q8 [facility] PRN Reason: Protocol Last Admin: 06/13/17 10:00 Dose: 500 mg Ondansetron HCl (Zofran Inj) 4 mg IVP Q6 PRN PRN Reason: Nausea/Vomiting Pantoprazole Sodium (Protonix Inj) 40 mg IVP DAILY [facility] Last Admin: 06/13/17 10:00 Dose: 40 mg - Labs Labs: 06/11/17 05:30 06/11/17 05:30 - Constitutional Appears: Non-toxic, Chronically Ill - Head Exam Head Exam: NORMOCEPHALIC - Eye Exam Eye Exam: PERRL - ENT Exam ENT Exam: Mucous Membranes Dry - Neck Exam Neck Exam: absent: Lymphadenopathy - Respiratory Exam Respiratory Exam: Decreased Breath Sounds - Cardiovascular Exam Cardiovascular Exam: REGULAR RHYTHM - GI/Abdominal Exam GI & Abdominal Exam: Distended, Soft - Rectal Exam Rectal Exam: Deferred Assessment and Plan (1) Abnormal weight loss Status: Acute (2) Diverticulitis Status: Acute - Assessment and Plan (Free Text) Assessment: possible d/c on po rx with GI follow up once CT reviewed
[2017-06-13 14:21] LABS: GLUTEN (F79) IGE <0.10 kU/L (<0.10)
[2017-06-14] MEDS: Piperacillin/Tazobact 3.375 GM in Sodium Chloride 0.9% 100 ML IVPB SCH (06:30)
[2017-06-14 08:13] VITALS: BP 106/47; PULSE 68; RESP 19; TEMP 98.3; O2SAT 97
[2017-06-14] MEDS: Lactobacillus Acidophilus 500 MU Cap PO SCH (08:20)
[2017-06-14] MEDS: Enoxaparin 40 mg Syringe SC SCH (08:21)
--- NOTE | 2017-06-14 10:54 | CP.PCM.DIS ---
Provider - Provider Date of Admission: 06/08/17 19:15 Attending physician: Soren Mcgraw MD Primary care physician: Dr. Sven Mcgraw Consults: ID: Dr. Sarmiento GI: Dr. Shearer Time Spent in preparation of Discharge (in minutes): 35 Diagnosis - Discharge Diagnosis (1) Diverticulitis of sigmoid colon Status: Acute Comment: treated with IV zosyn/flagyl with improvement of sx. possible intramural abcess, patient clinically better, abdomen is soft and nontender, tolerating regular diet. Continue PO abx. If needed can have repeat CT outpatient. (2) DVT prophylaxis Status: Resolved Hospital Course - Lab Results Lab Results: Most Recent Lab Values WBC 10.2 K/uL (4.8-10.8) 06/11/17 05:30 RBC 4.33 Mil/uL (4.40-5.90) L 06/11/17 05:30 Hgb 13.7 g/dL (12.0-18.0) 06/11/17 05:30 Hct 41.3 % (35.0-51.0) 06/11/17 05:30 MCV 95.4 fl (80.0-94.0) H 06/11/17 05:30 MCH 31.7 pg (27.0-31.0) H 06/11/17 05:30 MCHC 33.3 g/dL (33.0-37.0) 06/11/17 05:30 RDW 13.3 % (11.5-14.5) 06/11/17 05:30 Plt Count 248 K/uL (130-400) 06/11/17 05:30 MPV 8.1 fl (7.2-11.7) 06/11/17 05:30 Neut % (Auto) 75.4 % (50.0-75.0) H 06/11/17 05:30 Lymph % (Auto) 12.1 % (20.0-40.0) L 06/11/17 05:30 Grant % (Auto) 10.1 % (0.0-10.0) H 06/11/17 05:30 Eos % (Auto) 2.0 % (0.0-4.0) 06/11/17 05:30 Baso % (Auto) 0.4 % (0.0-2.0) 06/11/17 05:30 Neut # 7.7 K/uL (1.8-7.0) H 06/11/17 05:30 Lymph # 1.2 K/uL (1.0-4.3) 06/11/17 05:30 Grant # 1.0 K/uL (0.0-0.8) H 06/11/17 05:30 Eos # 0.2 K/uL (0.0-0.7) 06/11/17 05:30 Baso # 0.0 K/uL (0.0-0.2) 06/11/17 05:30 Neutrophils % (Manual) 79 % (42-75) H 06/08/17 17:08 Band Neutrophils % 5 % (0-2) H 06/08/17 17:08 Lymphocytes % (Manual) 8 % (20-50) L 06/08/17 17:08 Monocytes % (Manual) 8 % (0-10) 06/08/17 17:08 Toxic Granulation Present 06/08/17 17:08 Platelet Estimate Normal (NORMAL) 06/08/17 17:08 Macrocytosis (manual) Slight 06/08/17 17:08 ESR 19 mm/hr (0-15) H 06/11/17 05:30 Sodium 136 mmol/l (132-148) 06/11/17 05:30 Potassium 4.2 MMOL/L (3.6-5.0) 06/11/17 05:30 Chloride 97 mmol/L (98-107) L 06/11/17 05:30 Carbon Dioxide 31 mmol/L (22-30) H 06/11/17 05:30 Anion Gap 12 (10-20) 06/11/17 05:30 BUN 4 mg/dl (9-20) L 06/11/17 05:30 Creatinine 0.8 mg/dl (0.8-1.5) 06/11/17 05:30 Est GFR ( Amer) > 60 06/11/17 05:30 Est GFR (Non-Af Amer) > 60 06/11/17 05:30 Random Glucose 91 mg/dL (75-110) 06/11/17 05:30 Calcium 8.9 mg/dL (8.4-10.2) 06/11/17 05:30 Total Bilirubin 0.6 mg/dl (0.2-1.3) 06/11/17 05:30 AST 26 U/L (17-59) 06/11/17 05:30 ALT 36 U/L (21-72) 06/11/17 05:30 Alkaline Phosphatase 68 U/L (38-126) 06/11/17 05:30 Total Protein 6.8 G/DL (6.3-8.2) 06/11/17 05:30 Albumin 3.7 g/dL (3.5-5.0) 06/11/17 05:30 Globulin 3.1 gm/dL (2.2-3.9) 06/11/17 05:30 Albumin/Globulin Ratio 1.2 (1.0-2.1) 06/11/17 05:30 Lipase 103 U/L (23-300) 06/08/17 17:08 Alpha Fetoprotein 2.6 IU/mL (0.0-7.22) 06/11/17 05:30 Carcinoembryonic Ag 6.5 ng/mL (0-3.0) H 06/11/17 05:30 Vitamin B12 629 pg/mL (239-931) 06/13/17 05:50 Folate 11.6 ng/mL 06/12/17 17:00 Thyroxine (T4) 7.77 ug/dl (5.5-11.0) 06/11/17 05:30 Total T3 1.00 nmol/L (1.49-2.60) L 06/11/17 05:30 TSH 3rd Generation 2.42 mIU/ML (0.46-4.68) 06/11/17 05:30 Gluten Allergen IgE Ab <0.10 kU/L (<0.10) 06/12/17 16:15 Gluten [place] Class 0 06/12/17 16:15 Urine Color [place] (YELLOW) 06/08/17 17:08 Urine Clarity Slighty-cloudy (Clear) 06/08/17 17:08 Urine pH 5.0 (5.0-8.0) 06/08/17 17:08 Ur Specific [place] 1.033 (1.003-1.030) H 06/08/17 17:08 Urine Protein 100 mg/dL (NEGATIVE) 06/08/17 17:08 Urine Glucose (UA) Neg mg/dL (Normal) 06/08/17 17:08 Urine Ketones Negative mg/dL (NEGATIVE) 06/08/17 17:08 Urine Blood Small (NEGATIVE) 06/08/17 17:08 Urine Nitrate Negative (NEGATIVE) 06/08/17 17:08 Urine Bilirubin Negative (NEGATIVE) 06/08/17 17:08 Urine Urobilinogen 0.2-1.0 mg/dL (0.2-1.0) 06/08/17 17:08 Ur Leukocyte Esterase Neg Daniel/uL (Negative) 06/08/17 17:08 Urine RBC (Auto) 5 /hpf (0-3) H 06/08/17 17:08 Urine Microscopic WBC 2 /hpf (0-5) 06/08/17 17:08 Ur Squamous Epith Cells 2 /hpf (0-5) 06/08/17 17:08 Stool Occult Blood Negative (NEGATIVE) 06/13/17 13:26 C. difficile Ag & Toxin Negative (NEGATIVE) 06/12/17 11:00 HIV 1&2 Antibody Screen Negative (NEGATIVE) 06/12/17 16:15 - Hospital Course Hospital Course: Patient seen and examined with Dr. Mcgraw. 47 year old male presented with worsening abdominal pain, admitted for acute sigmoid diverticulitis. He is better today, appears well. Tolerating regular diet. No pain in abdomen. Having 2 BM daily. Patient to continue PO antibiotics and follow up with Dr. Mcgraw in 1 week. Case d/w Dr. Sarmiento - Date & Time of H&P Date of H&P: 06/09/17 Time of H&P: 11:35 Discharge Exam - Head Exam Head Exam: NORMOCEPHALIC - Eye Exam Eye Exam: EOMI, Normal appearance, PERRL - ENT Exam ENT Exam: Mucous Membranes Moist - Respiratory Exam Respiratory Exam: Clear to PA & Lateral, NORMAL BREATHING PATTERN, UNREMARKABLE - Cardiovascular Exam Cardiovascular Exam: REGULAR RHYTHM, +S1, +S2 - GI/Abdominal Exam GI & Abdominal Exam: Normal Bowel Sounds, Soft. absent: Distended, Guarding, Rebound, Tenderness - Rectal Exam Rectal Exam: Deferred - Neurological Exam Neurological exam: Alert, CN II-XII Intact, Oriented x3 - Psychiatric Exam Psychiatric exam: Normal Affect, Normal Mood - Skin Skin Exam: Dry, Intact, Normal Color, Warm Discharge Plan - Discharge Medications Prescriptions: Dicyclomine [Bentyl] 10 mg PO TID #60 cap Lactobacillus Acidophilus [Bacid Acidophilus] 1 cap PO BID #14 cap Pantoprazole [Protonix] 40 mg PO DAILY #14 ect levoFLOXacin [Levaquin] 750 mg PO DAILY #7 tab metroNIDAZOLE [Flagyl] 500 mg PO Q8 #21 tab - Follow Up Plan Condition: STABLE Disposition: HOME/ ROUTINE Instructions: Diverticulitis (DC) Additional Instructions: pt. doing well today Tolerating diet- denies n/v/d or abd pain, fever, chills Repeat Ct results reviewed with and patient- pt. cleared for discharge to home today by pt. will f/u with and Referrals: Anthony Shearer [Staff Provider] - Soren Mcgraw MD [Family Provider] -
--- NOTE | 2017-06-14 11:16 | CP.PCM.PN ---
Subjective - Date & Time of Evaluation Date of Evaluation: 06/14/17 Time of Evaluation: 09:00 - Subjective Subjective: less pain no fever abd soft for d/c home on orals Objective - Vital Signs/Intake and Output Vital Signs (last 24 hours): Temp Pulse Resp BP Pulse Ox 98.3 F 68 19 106/47 L 97 06/14/17 08:12 06/14/17 08:12 06/14/17 08:12 06/14/17 08:12 06/14/17 08:12 - Medications Medications: Current Medications Dicyclomine HCl (Bentyl) 10 mg PO TID [facility] Last Admin: 06/14/17 08:21 Dose: 10 mg Enoxaparin Sodium (Lovenox) 40 mg SC DAILY [facility] PRN Reason: Protocol Last Admin: 06/14/17 08:21 Dose: 40 mg Hydromorphone HCl (Dilaudid) 2 mg IVP Q4 PRN PRN Reason: Pain, severe (8-10) Last Admin: 06/14/17 04:41 Dose: 2 mg Hydromorphone HCl (Dilaudid) 1 mg IVP Q4 PRN PRN Reason: Pain, moderate (4-7) Last Admin: 06/13/17 01:35 Dose: 1 mg Metronidazole (Flagyl 500mg/100ml Ns) 100 mls @ 100 mls/hr IVPB ONCE [facility] PRN Reason: Protocol Piperacillin Sod/Tazobactam (Sod 3.375 gm/ Sodium Chloride) 100 mls @ 100 mls/ hr IVPB Q8H [facility] PRN Reason: Protocol Last Admin: 06/14/17 06:30 Dose: 100 mls/hr Lactobacillus Acidophilus (Bacid Acidophilus) 1 cap PO BID [facility] Last Admin: 06/14/17 08:20 Dose: 1 cap Metronidazole (Flagyl) 500 mg PO Q8 [facility] PRN Reason: Protocol Last Admin: 06/14/17 08:21 Dose: 500 mg Ondansetron HCl (Zofran Inj) 4 mg IVP Q6 PRN PRN Reason: Nausea/Vomiting Pantoprazole Sodium (Protonix Inj) 40 mg IVP DAILY [facility] Last Admin: 06/14/17 08:22 Dose: 40 mg - Labs Labs: 06/11/17 05:30 06/11/17 05:30 - Constitutional Appears: Non-toxic - Head Exam Head Exam: NORMOCEPHALIC - Eye Exam Eye Exam: PERRL - ENT Exam ENT Exam: Mucous Membranes Dry - Neck Exam Neck Exam: absent: Lymphadenopathy - Respiratory Exam Respiratory Exam: Decreased Breath Sounds - Cardiovascular Exam Cardiovascular Exam: REGULAR RHYTHM - GI/Abdominal Exam GI & Abdominal Exam: Distended, Soft - Rectal Exam Rectal Exam: Deferred - Exam Exam: NORMAL INSPECTION - Extremities Exam Extremities Exam: absent: Pedal Edema - Back Exam Back Exam: absent: CVA tenderness (L), CVA tenderness (R) Assessment and Plan (1) Abnormal weight loss Status: Acute (2) Diverticulitis Status: Acute
--- NOTE | 2017-06-14 13:11 | CP.PCM.PN ---
Subjective - Date & Time of Evaluation Date of Evaluation: 06/13/17 Time of Evaluation: 16:30 - Subjective Subjective: doing well Objective - Vital Signs/Intake and Output Vital Signs (last 24 hours): Temp Pulse Resp BP Pulse Ox 98.3 F 68 19 106/47 L 97 06/14/17 08:12 06/14/17 08:12 06/14/17 08:12 06/14/17 08:12 06/14/17 08:12 - Labs Labs: 06/11/17 05:30 06/11/17 05:30 - Respiratory Exam Respiratory Exam: NORMAL BREATHING PATTERN - Cardiovascular Exam Cardiovascular Exam: REGULAR RHYTHM - GI/Abdominal Exam GI & Abdominal Exam: Soft, Normal Bowel Sounds Assessment and Plan - Assessment and Plan (Free Text) Assessment: 47 yo male with diverticulitis doing well dc planning outpatient colonoscopy
== END 2017-06-14 12:41 | disposition home or self-care (01) | DRG 392 ==
LOC: H.ER 15:39 → OBSVTOIN 19:15 → H.ERHOLD 19:15 → H.MEDSURG1 20:20
PROVIDERS: ADMIT Family Medicine; ATTEND Family Medicine
DX: K57.32 Diverticulitis of large intestine without perforation or abscess without bleeding (principal); D72.829 Elevated white blood cell count, unspecified; F17.210 Nicotine dependence, cigarettes, uncomplicated; Z90.49 Acquired absence of other specified parts of digestive tract; F12.90 Cannabis use, unspecified, uncomplicated; F45.9 Somatoform disorder, unspecified; R63.4 Abnormal weight loss; R97.0 Elevated carcinoembryonic antigen [CEA]

== ENCOUNTER 2017-11-04 12:57 | Emergency (ER) | payer MEDICAID ==
[2017-11-04 12:57] VITALS: BMI 24.3
[2017-11-04 13:07] VITALS: BP 151/91; PULSE 71; RESP 18; TEMP 98.6; O2SAT 97
--- NOTE | 2017-11-04 13:15 | ED PDOC ---
HPI: Dental Pain/Injury Time Seen by Provider: 11/04/17 13:08 Chief Complaint (Nursing): Dental Pain Chief Complaint (Provider): Dental Pain History Per: Patient History/Exam Limitations: no limitations Onset/Duration Of Symptoms: Worse Since (x2 days) Current Symptoms Are (Timing): Still Present Additional Complaint(s): 47 year old male presents to the emergency department with a complaint of worsening left-sided facial pain and swelling radiating to the left side of his head for the last 2 days. Patient also reports having a runny nose associated with nasal congestion ongoing for 3 months and have been taking OTC cold medication without relief. Last dose of Ibuprofen was taken at 0700 this morning. He denies any fever, chills, dental pain/trauma or sore throat. PMD: Soren Mcgraw MD Past Medical History Reviewed: Historical Data, Nursing Documentation, Vital Signs Vital Signs: Last Vital Signs Temp 98.6 F 11/04/17 13:04 Pulse 71 11/04/17 13:04 Resp 18 11/04/17 13:04 BP 151/91 H 11/04/17 13:04 Pulse Ox 97 11/04/17 13:04 - Medical History PMH: Diverticulitis Denies: Chronic Kidney Disease - Surgical History Surgical History: Appendectomy (1994) - Family History Family History: States: Unknown Family Hx - Social History Current smoker - smoking cessation education provided: No Alcohol: None Drugs: Denies - Immunization History Hx Tetanus Toxoid Vaccination: No Hx Influenza Vaccination: No Hx Pneumococcal Vaccination: No - Home Medications Home Medications: Ambulatory Orders Medication Instructions Recorded Dicyclomine [Bentyl] 10 mg PO TID #60 cap 06/14/17 Lactobacillus Acidophilus [Bacid 1 cap PO BID #14 cap 06/14/17 Acidophilus] Pantoprazole [Protonix] 40 mg PO DAILY #14 ect 06/14/17 levoFLOXacin [Levaquin] 750 mg PO DAILY #7 tab 06/14/17 metroNIDAZOLE [Flagyl] 500 mg PO Q8 #21 tab 06/14/17 Amoxicillin/Clavulanate [Augmentin 1 tab PO BID #20 tab 11/04/17 875 MG-125 MG] Fluticasone Propionate [Flonase] 2 spr NS DAILY PRN #1 bottle 11/04/17 Pseudoephedrine HCl [Sudafed 12 120 mg PO BID PRN #30 tablet.er 11/04/17 Hour] - Allergies Allergies/Adverse Reactions: Allergies Allergy/AdvReac Type Severity Reaction Status Date / Time No Known Allergies Allergy Verified 11/04/17 13:03 Review of Systems ROS Statement: Except As Marked, All Systems Reviewed And Found Negative Constitutional: Negative for: Fever, Chills ENT: Positive for: Nose Discharge, Nose Congestion, Mouth Pain (left-sided), Mouth Swelling (left-sided). Negative for: Throat Pain (or dental pain/trauma) Neurological: Positive for: Headache (left-sided) Physical Exam - Reviewed Nursing Documentation Reviewed: Yes Vital Signs Reviewed: Yes - Physical Exam Appears: Positive for: Non-toxic, No Acute Distress Head Exam: Positive for: ATRAUMATIC, NORMAL INSPECTION, NORMOCEPHALIC Skin: Positive for: Normal Color. Negative for: Rash Eye Exam: Positive for: Normal appearance, EOMI, PERRL ENT: Positive for: TM Is/Are (clear bilaterally), Sinus Pain/Drainage (clear drainage; left turbinate swelling; left-sided sinus pain exacerbated when flexing neck forward), Other (poor dentition). Negative for: Pharyngeal Erythema, Tonsillar Swelling (or dental tenderness/gum swelling) Respiratory: Positive for: Normal Breath Sounds. Negative for: Decreased Breath Sounds, Respiratory Distress Neurologic/Psych: Positive for: Alert (x3), Oriented. Negative for: Motor/ Sensory Deficits, Aphasia, Facial Droop - ECG O2 Sat by Pulse Oximetry: 97 (RA) Pulse Ox Interpretation: Normal Medical Decision Making Medical Decision Making: Initial Impression: Acute sinusitis Initial Plan: * Toradol 30mg IM Time: 1310 --Upon provider evaluation, patient is medically stable and requires no further treatment in the ED at this time. Patient will be discharged home with Rx for Sudafed 120mg, Augmentin 875mg and Flonase. Counseling was provided and all questions were answered regarding diagnosis and need for follow up with Dr. Mcgraw for further evaluation. There is agreement to discharge plan. Return if symptoms persist or worsen. Clinical Impression: Acute sinusitis Scribe Attestation: Documented by Maisha Marx, acting as a scribe for Trevor Villareal PA-C. Provider Scribe Attestation: All medical record entries made by the Scribe were at my direction and personally dictated by me. I have reviewed the chart and agree that the record accurately reflects my personal performance of the history, physical exam, medical decision making, and the department course for this patient. I have also personally directed, reviewed, and agree with the discharge instructions and disposition. Disposition - Clinical Impression Clinical Impression: Acute sinusitis - Patient ED Disposition Is Patient to be Admitted: No Counseled Patient/Family Regarding: Diagnosis, Need For Followup, Rx Given - Disposition Referrals: Leydi Sung [Outside] Soren Mcgraw MD [Staff Provider] - Disposition: Routine/Home Disposition Time: 13:10 Condition: STABLE Additional Instructions: Follow up with Dr. Mcgraw for further evaluation. Return to ED immediately if symptoms worsen. If temperature of 100.4 or above develops return to ED immediately. Prescriptions: Amoxicillin/Clavulanate [Augmentin 875 MG-125 MG] 1 tab PO BID #20 tab Fluticasone Propionate [Flonase] 2 spr NS DAILY PRN #1 bottle PRN Reason: Allergy Symptoms Pseudoephedrine HCl [Sudafed 12 Hour] 120 mg PO BID PRN #30 tablet.er PRN Reason: Nasal Congestion Instructions: Sinusitis, Adult (DC) Forms: [place] ([place]inamese) Print Language: SPANISH
== END 2017-11-04 13:56 | disposition home or self-care (01) ==
LOC: H.ER 12:57
DX: J01.90 Acute sinusitis, unspecified (principal)
CPT/HCPCS: 96372; 99282; J1885